=== PATIENT | female | born 1960 | race Caucasian/White ===

== ENCOUNTER → 2017-07-07 | Outpatient (CLI) | payer BC ==
[~2017-07-07] MED LIST: ALPR-412 PO; ATOR-22 PO; B-COTAB18 PO; BCTROWC; CALC-338 PO; CETI10TA84 PO; DILT300C21 PO; FLUT50SP14 NAE; FRRG PO; MULT-513 PO; NCYSR50 PO; OMEG10007 PO; PANT40TA PO; RANI150T3 PO; TRAM-10 PO; TRIA37.5 PO; WARF1TAB PO; premarin cream
--- NOTE | 2017-07-07 09:46 | DIAGNOSTIC IMAGING REPORT ---
SOFT TISS HEAD/NECK-THYROID CLINICAL HISTORY: 56 years-old Female presenting with E04.2 Nontoxic multinodular goiter. TECHNIQUE: Real-time grayscale and color and spectral Doppler ultrasound imaging of the thyroid and base of the neck was performed. COMPARISON: 06/17/2016. FINDINGS: Right lobe: Normal echogenicity and heterogeneous echotexture secondary to the presence of multiple nodules. The right lobe of the thyroid measures 5.8 x 1.6 x 2.4 cm. 2 dominant nodules described below: 1) 2.8 x 1.3 x 1.4 cm complex cystic and solid appearing spongiform nodule with punctate hyperechogenic foci with ringdown artifact, likely indicating inspissated colloid. Internal vascularity noted on color Doppler. This nodule is well-defined and wider than tall (Very low suspicion) 2) 1.6 x 1.0 x 1.1 cm complex cystic and solid appearing nodule with internal vascularity. This nodule is well-defined and wider than tall. (Very low suspicion) Left lobe: Normal echogenicity and heterogeneous echotexture secondary to the presence of multiple nodules. The left lobe of the thyroid measures 5.4 x 1.5 x 1.8 cm. 2 dominant nodules described below: 1) 1.0 x 0.6 x 0.7 cm cyst. (Benign) 2) 0.8 x 0.5 x 0.7 cm heterogeneously hypoechoic well-defined nodule that is wider than tall. Small focus of hyperechogenicity may indicate calcification. (Intermediate suspicion) Isthmus: The isthmus measures 2 mm in thickness. No nodules. IMPRESSION: Multinodular thyroid. No nodules meet criteria for fine needle aspiration recommendation at this time. Follow-up to be considered as clinically warranted. Electronically signed by: Theo Martinez M.D. 07/07/2017 9:45 AM Dictated Date/Time: 07/07/2017 9:39 AM
== END | disposition home or self-care (01) ==
LOC: C.ULTRBC 09:14
DX: E04.2 Nontoxic multinodular goiter (principal)

== ENCOUNTER → 2017-07-22 | Outpatient (CLI) | payer BC ==
--- NOTE | 2017-07-22 16:08 | MAMMOGRAPHY REPORT ---
BILATERAL DIGITAL SCREENING MAMMOGRAM TOMOSYNTHESIS WITH CAD: 07/22/2017 CLINICAL HISTORY: Routine screening. Patient has no complaints. TECHNIQUE: Breast tomosynthesis in addition to standard 2D mammography was performed. Current study was also evaluated with a Computer Aided Detection (CAD) system. COMPARISON: Comparison is made to exams dated: 07/17/2016 mammogram, 07/14/2015 mammogram, 07/08/2014 m ammogram, 07/05/2013 mammogram, 06/24/2012 mammogram, and 06/19/2011 mammogram - [facility]. BREAST COMPOSITION: There are scattered areas of fibroglandular density in both breasts. FINDINGS: There are scattered benign rim calcifications in the breasts. No suspicious mass, architec tural distortion or cluster of suspicious microcalcifications is seen. IMPRESSION: ACR BI-RADS CATEGORY 1: NEGATIVE There is no mammographic evidence of malignancy. A 1 year screening mammogram is recommended. The pa tient will receive written notification of the results. Approximately 10% of breast cancers are not detected with mammography. A negative mammographic report should not delay biopsy if a clinically suggestive mass is present. Marie Emerson M.D. ay/:07/22/2017 16:00:53 Procurement Technician: Chloe BOWMAN(Cyndi)(Felecia)(BD), [facility] letter sent: Normal 1/2 BI-RADS Code: ACR BI-RADS Category 1: Negative
== END | disposition home or self-care (01) ==
LOC: C.MAMM 07:14
PROVIDERS: ATTEND Obstetrics & Gynecology
DX: Z12.31 Encounter for screening mammogram for malignant neoplasm of breast (principal)

== ENCOUNTER → 2018-07-10 | Outpatient (CLI) | payer OTHER ==
--- NOTE | 2018-07-13 09:34 | DIAGNOSTIC IMAGING REPORT ---
L-SPINE MIN 4 VIEWS ROUTINE HISTORY: 57 years-old Female M54.5 Chronic low back pain COMPARISON: Lumbar spine radiographs 02/02/2013 TECHNIQUE: 5 views of the lumbar spine FINDINGS: There is mild convex right curvature of the lumbar spine with apex at L4 measuring approximately 12 degrees which appears progressed from comparison. No acute fracture or subluxation is identified. There is moderate intervertebral disc space narrowing with endplate sclerosis and vacuum disc phenomenon at L5-S1, also worsened from prior study. There is mild multilevel spondylitic spurring with intervertebral disc space narrowing. Moderate facet arthrosis at L4-L5 and L5-S1, also progressed from comparison study. Partially imaged 2.8 cm sclerotic focus about the left iliac bone redemonstrated, likely benign appearing unchanged. Moderate formed stool about the colon. Bilateral nephrolithiasis with calculi measuring up to 4 mm about the superior pole left kidney. IMPRESSION: 1. No acute fracture or subluxation. 2. Progressively worsened discogenic degenerative changes as detailed above, most pronounced at L5-S1. 3. Mild dextroscoliosis. 4. Bilateral nephrolithiasis. The above report was generated using voice recognition software. It may contain grammatical, syntax or spelling errors. Electronically signed by: Sushant Justice M.D. 07/13/2018 9:33 AM Dictated Date/Time: 07/13/2018 9:27 AM
== END | disposition home or self-care (01) ==
LOC: C.RAD1850 16:00
PROVIDERS: ATTEND Physician Assistant
DX: M54.5 Low back pain (principal); N20.0 Calculus of kidney

== ENCOUNTER → 2018-07-17 | Outpatient (CLI) | payer OTHER | END | disposition home or self-care (01) | LOC: C.RDSM 13:15 | PROVIDERS: ATTEND Orthopaedic Surgery | DX: M25.561 Pain in right knee (principal); R52 Pain, unspecified; Z91.02 Food additives allergy status ==

== ENCOUNTER 2021-01-19 05:20 | Observation (INO) ==
--- NOTE | 2021-01-12 11:58 | Anesthesiology Consultation ---
Date of Service January 12, 2021 Assessment & Plan (1) Encounter for pre-operative examination: Chart Review Chart Review: Acceptable Risk for Surgery (pending anesthesia evaluation DOS and preop Covid testing results) and Patient seen in Pre Admission Testing (seen in PAT 12/20/20- had V# account changed- information moved to new account ) PT VERY CLAUSTROPHOBIC - Will leave to anesthesiologist discretion if repeat CXR needed DOS (CT scan showing possible inflammatory/infectious change- pt denied pulmonary issues) Per PAT appt on 12/20/20, pt denies any recent travel. No known Covid positive contacts or Covid related symptoms. Pt scheduled for preop Covid testing 01/15/21= will await results. Note sent to PCP re: abnormal CXR and nodule opacity. (see response below) -Spoke with Dr. Knox via telephone 12/21/20= patient will be set up for chest CT prior to surgery (hopefully next week). Will await results. Regarding Karla Danlos syndrome- ECHO done in 2018 showed no acute issues- pt does not need repeat from PCP standpoint prior to surgery. Chest CT 12/29/2020 = Small focal areas of faint groundglass density within the base of the right middle lobe and right lower lobe. These favor areas of resolving inflammatory/infectious change. One of these could have corresponded to the chest x-ray abnormality. No suspicious nodules within the lung bases. A few tiny nodular densities of the right lung apex with the largest measuring 3 mm. These are likely benign. However, these bear watching future examinations. Mild aneurysmal dilatation of the ascending thoracic aorta measures up to 4 cm in diameter. A 1.2 cm round soft tissue nodule within the anterior mediastinum. This could represent a small thymic epithelial neoplasm or prominent lymph node. [address] follow up recommended to ensure stability. Bilateral nephrolithiasis. Seen by PCP 01/04/2021 = patient seen for follow-up visit for continued monitoring and management of her multiple medical issues. PCP also aware of upcoming hip replacement. CT scan results (see above) were reviewed with patient per PCP. Patient is not having any pulmonary symptoms. Patient's blood pressure slowly improving with medication adjustments. Remains in the upper normal range. PCP feels that her chronic and apparent severe pain from her hip is contributing to the rise of blood pressure. " Nonetheless, I think it is at a level that is safe for her to go through surgery." "Her pre-admission testing did show a pulmonary nodule that is confirmed on CT scan. However, Radiology feels that the change is probably inflammatory or infectious. They recommend a repeat in 6 months. Will probably do it in 3. Nonetheless, this should not stop her from having her surgery later this month. " History Surgery Operation Date: 01/19/21 07:00 Proposed Procedures p Total Hip Arthroplasty Uncemt Anterior - Michael Alexis, Height/Weight Height: 5 ft 6 in Weight: 87.9 kg Allergies Allergy/AdvReac Type Severity Reaction Status Date / Time red dye Allergy Severe JEFFREY RED Verified 01/04/21 15:58 DYE - DIFFICULTY BREATHING, SWELLING pollen extracts Allergy Intermediate ITCHY Verified 01/04/21 15:58 EYES, SNEEZING, CONGESTION chlorhexidine Allergy Rash Verified 01/04/21 15:58 adhesive tape AdvReac Mild Redness of Verified 01/04/21 15:58 Skin Medications Home Medications Medication Instructions Recorded Confirmed Last Taken fluticasone propionate [Flonase 1 sprays INTNAS DAILY PRN 01/10/20 01/04/21 Unknown Allergy Relief] valacyclovir 500 mg PO BID PRN 01/10/20 01/04/21 Unknown vitamin B complex 1 tab PO QAM 01/10/20 01/04/21 01/18/20 07:00 epinephrine [EpiPen 2-Delroy] 0.3 mg IM ONCE PRN #1 ea 01/13/20 01/04/21 Unknown acetaminophen-caffeine 500 mg-65 2 tab PO QAM tab 06/06/20 01/04/21 Unknown mg tablet atorvastatin 20 mg tablet 20 mg PO QPM #90 tab 06/06/20 01/04/21 Unknown cholecalciferol (vitamin D3) 100 100 mcg PO QAM 06/06/20 01/04/21 Unknown mcg (4,000 unit) capsule diltiazem HCl 300 mg 300 mg PO QPM #90 cap 06/06/20 01/04/21 Unknown capsule,extended release 24 hr diphenhydramine 25 2 tab PO HS tab 06/06/20 01/04/21 Unknown mg-acetaminophen 500 mg tablet pantoprazole 40 mg tablet,delayed 40 mg PO BID #180 tab 09/12/20 01/04/21 Unknown release meloxicam 15 mg PO QAM 12/11/20 01/04/21 Unknown alprazolam 0.25 mg tablet 0.25 mg PO TID #270 tab 12/14/20 01/04/21 Unknown loratadine 10 mg capsule 10 mg PO DAILY 12/14/20 01/04/21 Unknown tramadol 50 mg tablet 100 mg PO Q8H #540 tab 12/14/20 01/04/21 Unknown losartan 50 mg-hydrochlorothiazide 1 tab PO DAILY #90 tab 01/08/21 Unknown 12.5 mg tablet oxycodone-acetaminophen 5 mg-325 1 tab PO .COMPLEX PRN #60 tab 01/08/21 Unknown mg tablet Past Medical History Medical History Anxiety Asthma YEARS AGO PER PT> NO INH- WELL CONTROLLED AND STABLE Constipation CHRONIC- PT WILL BE PRE-MEDICATING PRIOR TO SURGERY Depression Karla-Danlos, 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 - DOES HAVE ASSOCIATED MVP, MIXED CONNECTIVE TISSUE DISEASE, LOOSE JOINTS Eosinophilic esophagitis Gastroesophageal reflux disease WELL CONTROLLED AND STABLE WITH MED Hearing deficit BL RIZZO Hyperlipidemia Hypertension Lupus SLE Mitral valve prolapse does not follow w/ cardio Mixed connective tissue disease NO LONGER FOLLOWS WITH RHEUM Multinodular thyroid GETS CHECKED YEARLY > HASN'T CHANGED Osteoarthritis Scoliosis Tinnitus of right ear Exercise / Class Metabolic Activity III < 4 Walking/Shop/Light housework (one flight of stairs - no chest pain, mild SOB due deconditioning ) Past Family History Family History Father Stomach cancer Hearing loss Bladder cancer Dyslipidemia Non-Hodgkin lymphoma Sinusitis Hypertension Diabetes Mother Skin cancer Hearing loss deaf in right ear Osteoporosis Dyslipidemia Kidney disease Breast cancer Hypertension Post-operative nausea and vomiting Family/Other Bleeding Past Surgical History Surgical History H/O colonoscopy H/O laparoscopy H/O LEEP H/O oral surgery WISDOM TEETH History of adenoidectomy History of cryosurgery cervix History of dilation and curettage History of elbow surgery repair of Rt elbow fracture-1984 History of esophagogastroduodenoscopy (EGD) History of hysterectomy with unilateral oophorectomy History of Mohs micrographic surgery for skin cancer x 2 History of myringotomy History of total left knee replacement S/P tonsillectomy Past Anesthesia History No Hx of Anesthesia Complications and No Family Hx of Anesthesia Complications (WITH EXCEPTION TO MOTHER - PONV ) History of PONV No Hx of PONV (BUT FEELS LIKE SHE WAS GIVEN MEDS IN THE PAST TO HELP WITH PONV ) and Hx of Motion Sickness (CAR SICKNESS) Social History Smoking Status: Never smoker Hx Alcohol Use: Yes Alcohol type: wine and hard liquor alcohol intake frequency: a few times a month Hx Substance Use: No substance use type: does not use Review of Systems Patient denies chest pain, shortness of breath at rest, cough, wheezing, palpitations. No hx of seizures, stroke, UT, apnea/snoring. No hx of blood clots or blood transfusions Physical Exam Vital Signs VITALS BP 147/93 P 66 TEMP 97.8 SP02 99% RESP 16 Constitutional no acute distress ENMT Mouth: no TMJ clicking Thyromental Distance: > or= 3.5 Finger Breadths (3.5) Mallampati Class: I Crowns to molars Neck neck extension not limited Respiratory normal respiratory effort; no respiratory distress Auscultation: lungs clear to auscultation bilaterally; no wheezes Cardiovascular Rate/Rhythm: regular rate and regular rhythm Heart Sounds: no murmur Vessels: no carotid bruit Musculoskeletal Spine: no pain with cervical ROM Extremities: extremities normal to inspection Psychiatric Orientation: alert Testing Laboratory Results Laboratory Tests 12/20/20 12/20/20 12/20/20 10:21 10:21 10:21 WBC 6.93 Hgb 13.9 Hct 41.9 Plt Count 294 PT 10.3 INR 1.0 APTT 25.4 Sodium 140 Potassium 3.6 Chloride 107 Carbon Dioxide 29 BUN 15 Creatinine 0.89 Glucose 97 12/20/2020 = T&S: A+, antibody negative Electrocardiogram Date: 12/20/20 Findings: + SB @ (58bpm) Otherwise normal EKG. Chest X-Ray Date: 12/20/20 1.9 cm nodular opacity which projects over the heart on lateral projection. This could reflect artifact or minimal airspace disease. However, a pulmonary nodule could appear similar. A chest CT is recommended. (Subsequent CT scan of chest done 2/5/21) Echocardiogram Date: 07/23/18 EF: 60-65% LV Function: normal RWMA: + none LA mildly dilated. Late systolic prolapse of MV leaflets. Mild to moderate MR. Mild TR. Compared to study on 12/28/13- no significant change.
--- NOTE | 2021-01-18 15:56 | History & Physical Report ---
Date of Service January 18, 2021 Assessment & Plan (1) Osteoarthritis of left hip: We will proceed with a left anterior total knee arthroplasty. Postoperatively she will be started on aspirin for DVT prophylaxis. She will be kept overnight in the hospital for postoperative medical management. She plans to use energy physical therapy upon discharge. History of Present Illness Chief Complaint: Osteoarthritis of the left hip. Primary Care Provider: Antony Knox MD Rebecca is a pleasant 60-year-old female who has been dealing with chronic increasing left hip and groin pain. X-rays and clinical examination have been diagnostic for advanced osteoarthritis of the left hip. After failing conservative treatment, she has elected to proceed with a left total hip arthroplasty.. Allergies Allergy/AdvReac Type Severity Reaction Status Date / Time red dye Allergy Severe JEFFREY RED Verified 01/14/21 19:57 DYE - DIFFICULTY BREATHING, SWELLING pollen extracts Allergy Intermediate ITCHY Verified 01/14/21 19:57 EYES, SNEEZING, CONGESTION chlorhexidine Allergy Rash Verified 01/14/21 19:57 adhesive tape AdvReac Mild Redness of Verified 01/14/21 19:57 Skin Home Medications Medication Instructions Recorded Confirmed Type fluticasone propionate [Flonase 1 sprays INTNAS DAILY PRN 01/10/20 01/14/21 History Allergy Relief] valacyclovir 500 mg PO BID PRN 01/10/20 01/14/21 History vitamin B complex 1 tab PO QAM 01/10/20 01/14/21 History epinephrine [EpiPen 2-Delroy] 0.3 mg IM ONCE PRN #1 ea 01/13/20 01/14/21 Rx acetaminophen-caffeine 500 mg-65 2 tab PO QAM tab 06/06/20 01/14/21 History mg tablet atorvastatin 20 mg tablet 20 mg PO QPM #90 tab 06/06/20 01/14/21 Rx cholecalciferol (vitamin D3) 100 100 mcg PO QAM 06/06/20 01/14/21 History mcg (4,000 unit) capsule diltiazem HCl 300 mg 300 mg PO QPM #90 cap 06/06/20 01/14/21 Rx capsule,extended release 24 hr diphenhydramine 25 2 tab PO HS tab 06/06/20 01/14/21 History mg-acetaminophen 500 mg tablet pantoprazole 40 mg tablet,delayed 40 mg PO BID #180 tab 09/12/20 01/14/21 Rx release meloxicam 15 mg PO QAM 12/11/20 01/14/21 History alprazolam 0.25 mg tablet 0.25 mg PO TID #270 tab 12/14/20 01/14/21 Rx loratadine 10 mg capsule 10 mg PO DAILY 12/14/20 01/14/21 History tramadol 50 mg tablet 100 mg PO Q8H #540 tab 12/14/20 01/14/21 Rx losartan 50 mg-hydrochlorothiazide 1 tab PO DAILY #90 tab 01/08/21 01/14/21 Rx 12.5 mg tablet oxycodone-acetaminophen 5 mg-325 1 tab PO .COMPLEX PRN #60 tab 01/08/21 01/14/21 Rx mg tablet Past Med/Surg History Medical History Anxiety Asthma YEARS AGO PER PT> NO INH- WELL CONTROLLED AND STABLE Constipation CHRONIC- PT WILL BE PRE-MEDICATING PRIOR TO SURGERY Depression Karla-Danlos, 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 - DOES HAVE ASSOCIATED MVP, MIXED CONNECTIVE TISSUE DISEASE, LOOSE JOINTS Eosinophilic esophagitis Gastroesophageal reflux disease WELL CONTROLLED AND STABLE WITH MED Hearing deficit BL RIZZO Hyperlipidemia Hypertension Lupus SLE Mitral valve prolapse does not follow w/ cardio Mixed connective tissue disease NO LONGER FOLLOWS WITH RHEUM Multinodular thyroid GETS CHECKED YEARLY > HASN'T CHANGED Osteoarthritis Scoliosis Tinnitus of right ear Surgical History H/O colonoscopy H/O laparoscopy H/O LEEP H/O oral surgery WISDOM TEETH History of adenoidectomy History of cryosurgery cervix History of dilation and curettage History of elbow surgery repair of Rt elbow fracture-1984 History of esophagogastroduodenoscopy (EGD) History of hysterectomy with unilateral oophorectomy History of Mohs micrographic surgery for skin cancer x 2 History of myringotomy History of total left knee replacement S/P tonsillectomy Family History Father Stomach cancer Hearing loss Bladder cancer Dyslipidemia Non-Hodgkin lymphoma Sinusitis Hypertension Diabetes Mother Skin cancer Hearing loss deaf in right ear Osteoporosis Dyslipidemia Kidney disease Breast cancer Hypertension Post-operative nausea and vomiting Family/Other Bleeding Social History Smoking Status: Never smoker Second Hand Exposure: No; Do You Dip or Chew Tobacco: No; Tobacco Cessation Education Requested by Patient: No Hx Alcohol Use: Yes Alcohol type: wine and hard liquor Hx Substance Use: No Preferred Language: Bengali Communication Ability: Effective Firearms Sales Associate Required: No Beliefs That Will Affect Care: None marital status: Current Living Situation: Spouse current occupational status: retired Other Information That Helps Us Care for You: No Feels Safe at Home: Yes Safety Concerns: Feels Safe At This Time Physical Activity Frequency: 3-4 Times per Week Assistive Devices: Cane, Contacts, Glasses and Hearing Aid - Bilateral Review of Systems All systems reviewed & are unremarkable except as noted in HPI & below. Physical Exam On physical examination of the left hip, she ambulates independently. Her leg lengths are equal. She has severe pain with forced internal and external rotation of her hip.. Constitutional WD/WN, vitals as above Eyes PERRL, conjunctivae normal, anicteric sclerae ENMT external ear and nose normal, oropharynx normal Neck trachea midline, no thyromegaly Respiratory normal respiratory effort Cardiovascular RRR, no murmur, no edema Gastrointestinal (Abdomen) normal bowel sounds, soft, nontender, no hepatosplenomegaly Psychiatric A+Ox3, euthymic affect Results & Data Results & Data Laboratory Results . Diagnostic Findings X-rays of the left hip do show advanced osteoarthritis with joint space narrowing, osteophyte formation, and [id number] articulation.. PG Care Time/CCT Total # of Minutes Spent Total Time Spent with Patient: Total time spent is greater than 50% in coordination of care (as documented) at patient's floor/unit and/or counseling patient: Coding Level of Care Code None Diagnoses Osteoarthritis of left hip M16.12
[2021-01-19] MEDS ORDERED: FAMOTIDINE 20 MG TAB PO SCH (06:00)
[2021-01-19] MEDS ORDERED: LR 500ML BOLUS, THEN 15ML/HR IV SCH (06:00)
[2021-01-19] MEDS ORDERED: dexAMETHasone 4 MG TAB PO SCH (06:00)
[2021-01-19] MEDS ORDERED: LR 60ML/HR IV SCH (06:00)
[2021-01-19] MEDS ORDERED: ACETAMINOPHEN 500 MG TAB PO SCH (06:00)
[2021-01-19] MEDS ORDERED: GABAPENTIN 300 MG CAP PO SCH (06:00)
[2021-01-19] MEDS ORDERED: ceFAZolin 2000MG 2,000 MG/15 ML SYR IV SCH (06:00)
[2021-01-19] MEDS ORDERED: ROPIVACAINE 0.5% HCL/PF 150 MG, BUPIVACAINE 0.75% MPF 20 ML, EPINEPHrine 30MG/30ML (OR ... INSTIL SCH (06:00)
[2021-01-19] MEDS ORDERED: TRANEXAMIC ACID 1,000 MG **IV Pre-op IV SCH (06:00)
[2021-01-19] MEDS ORDERED: TRANEXAMIC ACID 1,000 MG **IV Intra-op IV SCH (06:00)
--- NOTE | 2021-01-19 06:15 | History & Physical Bridge Note ---
Date of Service January 19, 2021 History & Physical Bridge Note I have examined the patient, reviewed the History & Physical and in the interval since the performance of the History & Physical I have noted the following changes of clinical significance: no changes noted
[2021-01-19] MEDS ORDERED: BUPIVACAINE 0.5 % 5 MG/1 ML PF 10ML VIAL ONE (06:22)
[2021-01-19] MEDS ORDERED: PROPOFOL IV EMULSION 10 MG/ML 20 ML VIAL IV ONE ×10 (06:35→06:36)
[2021-01-19] MEDS ORDERED: MIDAZOLAM HCL 1 MG/ML 2ML VIAL ONE ×2 (06:38)
[2021-01-19] MEDS ORDERED: fentaNYL citrate 100 MCG/2 ML VIAL ONE (06:39)
[2021-01-19] MEDS ORDERED: ORTHO JOINT ANESTHETIC ONE (06:45)
[2021-01-19] MEDS ORDERED: PHENYLEPHRINE 100MCG/ML 5ML SYR ONE (07:29)
[2021-01-19] MEDS ORDERED: ePHEDrine sulfate 50 MG/ML SYR ONE (07:29)
[2021-01-19] MEDS ORDERED: ONDANSETRON INJ 2 MG/ML 2 ML VIAL ONE (08:47)
--- NOTE | 2021-01-19 08:49 | Operative Report ---
PG Post Operative Report Pre & Post Diagnosis Operation Date: 01/19/21 07:00 Pre-Op Diagnosis: Left Hip Osteoarthritis Post-Op Diagnosis: Left Hip Osteoarthritis I identified the patient and participated in the time-out.: Yes Procedure Operation Date: 01/19/21 07:00 Actual Procedures p Left Anterior Total Hip Arthroplasty(Left) - Michael Alexis DO Surgeon Michael Alexis, [employer] System Installer Helper Michael Barry PAC Estimated Blood Loss 300 Findings Consistent with Post-Op Diagnosis Specimens Left femoral head Complications none Disposition Disposition: Recovery Room Indications Rebecca is a pleasant 60-year-old female who is been dealing with chronic increasing left hip and groin pain. X-rays and clinical examination have been diagnostic for advanced osteoarthritis of the left hip. Her symptoms have gotten much worse recently. She has been downgraded to a walker and a wheelchair. 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 She does have extreme ligamentous laxity. She elected to proceed with a left total hip arthroplasty. Description of Procedure Implants used I used a Biomet Taperloc total hip arthroplasty system with a size 10 high offset Taperloc stem, a 50 mm Osseoti G7 cup with a 25mm screw, a 28 mm ceramic head and a 40 mm dual mobility shell with a 0 neck. Rebecca arrived at the hospital for the above procedure. She was seen in the preoperative holding area and the operative extremity was identified and signed. She was given a spinal anesthetic, a preoperative antibiotic, and TXA. She was then taken back to the operating room and laid on the table in the supine position. She was given basic sedation. The operative leg was secured to a Puristst leg positioner. The hip was then prepped and draped in sterile fashion. A timeout was done and the patient and the operative extremity was properly identified. An anterior approach was used. Dissection was taken down through the fascia and the tensor muscle belly was retracted laterally and the rectus was retracted medially. The circumflex vessels were identified and ligated. The capsule was then incised and tagged for later repair. The femoral neck was then cut and the femoral head was removed. The acetabulum was exposed. Time was spent doing a complete circumferential labral release. Sequential reaming of the acetabulum up to a size 49 reamer was done. Final reamings were done under fluoroscopy to ensure appropriate version. A Biomet 50 mm Osseoti G7 cup was then impacted into place. A single 25 mm screw was placed. The metal shell liner was then snapped into place. Surrounding soft tissues were then injected with 100 cc of an orthopedic pain control cocktail. The proximal femur was then exposed. Sequential broaching up to a size 10 broach was done. Off that broach a size 40 mm dual mobility head with a 0 neck was trialed. The hip was reduced and fluoroscopic images showed anatomic alignment of the implants in acceptable length. The broach was removed. The final size 10 high offset Taperloc stem was then impacted into place. A ceramic 28 mm head with a 40 mm dual mobility shell and 0 neck was then impacted onto the stem and the hip was reduced. Final fluoroscopic images showed anatomic alignment of the hip. The capsule was then closed with #1 Vicryl suture. A dilute betadyne lavage was then done for 3 minutes. The joint was then irrigated with normal saline solution. The fascia was closed with #1 PDS suture. Skin was closed with 2-0 Vicryl, get, and a Silverlon dressing. She was then transferred to a hospital bed and taken to the post anesthesia care unit in stable condition. She tolerated the procedure well. Michael Barry PA-C, was present for the entire procedure. He was critical for patient positioning, prepping, draping, retraction exposure, wound closure and application of sterile dressing. I attest to the content of the Intraoperative Record and any orders documented therein. Any exceptions are noted below.
--- NOTE | 2021-01-19 08:51 | Fluoroscopy Report ---
FL hip LT 1V CLINICAL HISTORY: LEFT ANTERIOR SCOT COMPARISON STUDY: X-ray study dated 01/04/2021 FLUOROSCOPY TIME: 30 seconds. NUMBER OF FLUOROSCOPIC IMAGES: 2 FINDINGS: 2 intraprocedural fluoroscopic spot images demonstrating a total left hip arthroplasty. IMPRESSION: Intraoperative fluoroscopic spot images demonstrating a total left hip arthroplasty ACT 112: Negative or not required by law. Electronically signed by: Watson Zapata M.D. 01/19/2021 8:50 AM
[2021-01-19] MEDS ORDERED: PHENYLEPHRINE HCL 10 MG/ML VIAL ONE (09:02)
--- NOTE | 2021-01-19 09:27 | XRay Report ---
XR hip 1V LT w pelvis HISTORY: 60 years-old Female IN PACU - A/P PELVIS and LATERAL HIP left hip total joint arthroplasty COMPARISON: Pelvis and left hip radiograph 01/04/2021 TECHNIQUE: AP view of the pelvis with crosstable lateral view of the left hip FINDINGS: Left hip total joint arthroplasty demonstrates satisfactory alignment. No acute fracture. 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 Mild osteoarthritis of the right hip. Lat eral left hip skin get are noted with adjacent deep tissue air with soft tissue swelling. No unex pected opaque foreign body. IMPRESSION: Left hip total joint arthroplasty with expected postoperative changes. ACT 112: Negative or not required by law. The above report was generated using voice recognition software. It may contain grammatical, syntax o r spelling errors. Electronically signed by: Sushant Justice M.D. 01/19/2021 9:25 AM
[2021-01-19] MEDS ORDERED: ATROPINE SULFATE 0.1 MG/ML 10ML SYR IV PRN (09:30)
[2021-01-19] MEDS ORDERED: ePHEDrine sulfate 50 MG/ML AMP IV PRN (09:30)
--- NOTE | 2021-01-19 09:31 | Anesthesiology Progress Note ---
Date of Service January 19, 2021 Anesthesia Post Procedure Vital Signs Vital Signs: Temp Pulse Pulse Resp BP Pulse Ox 01/19/21 09:25 36.5 C 75 14 124/70 97 01/19/21 09:15 78 14 124/65 100 01/19/21 09:06 36.5 C 69 14 136/72 100 01/19/21 05:55 37.1 C 81 18 156/86 H 97 Pain Intensity Left Hip: Pain Intensity: 10 Transfer of Care Handoff Completed per policy Notes Mental Status: alert / awake / arousable Patient Amnestic to Procedure: Yes Nausea / Vomiting: adequately controlled Pain: adequately controlled Airway Patency, RR, SpO2: stable & adequate BP & HR: stable & adequate Hydration State: stable & adequate Neuraxial Anesthesia: was administered and sensory block is resolving Anesthetic Complications: no major complications apparent
[2021-01-19] MEDS ORDERED: HYDROmorphone INJ 0.5 MG/0.5 ML SYR IV PRN (09:42)
[2021-01-19] MEDS ORDERED: FLUTICASONE PROPIONATE NA SPR 16 GM BTL PRN (09:42)
[2021-01-19] MEDS ORDERED: bisacodyL 10 MG SUPP PR PRN (09:42)
[2021-01-19] MEDS ORDERED: NALOXONE HCL 0.4 MG/1 ML VIAL/CARP IV PRN (09:42)
[2021-01-19] MEDS ORDERED: valACYclovir HCL 500 MG TABLET PO PRN (09:42)
[2021-01-19] MEDS ORDERED: SODIUM CHLORIDE 0.9% 1000ML 1,000 ML IV SCH (09:42)
[2021-01-19] MEDS ORDERED: ONDANSETRON INJ 2 MG/ML 2 ML VIAL IV PRN (09:42)
[2021-01-19] MEDS ORDERED: MAGNESIUM HYDROXIDE SUSP 30 ML UDC PO PRN (09:42)
[2021-01-19] MEDS ORDERED: EPINEPHrine ADULT AUTO-INJECT 0.3 MG SYR IM PRN (09:42)
[2021-01-19] MEDS ORDERED: METOCLOPRAMIDE HCL INJ 5 MG/ML 2 ML VIAL IV PRN (09:42)
[2021-01-19] MEDS: KETOROLAC 30 MG/ML VIAL IV SCH ×3 (10:42→21:47)
[2021-01-19] MEDS: ACETAMINOPHEN 500 MG TAB PO SCH ×2 (13:11→21:43)
[2021-01-19] MEDS: ALPRAZolam 0.25 MG TABLET PO SCH ×2 (13:11→21:47)
[2021-01-19] MEDS: ceFAZolin 2000MG 2,000 MG/15 ML SYR IV SCH ×2 (15:12→23:06)
[2021-01-19] MEDS: oxyCODONE HCL IR 5 MG TAB (IMMEDIATE RELEASE) PO PRN (17:41)
[2021-01-19] MEDS ORDERED: dilTIAZem HCL 300 MG CAPCR PO SCH (21:00)
[2021-01-19] MEDS ORDERED: ATORVASTATIN 20 MG TAB PO SCH (21:00)
[2021-01-19] MEDS ORDERED: SENNA 8.6 MG TAB PO SCH (21:00)
[2021-01-19] MEDS: ASPIRIN 81 MG ECTAB PO SCH (21:41)
[2021-01-19] MEDS: PANTOprazole 40 MG TAB PO SCH (21:42)
[2021-01-19] MEDS: DOCUSATE SODIUM 100 MG CAP PO SCH (21:47)
[2021-01-20] MEDS: KETOROLAC 30 MG/ML VIAL IV SCH ×2 (02:56→08:50)
[2021-01-20] MEDS: ACETAMINOPHEN 500 MG TAB PO SCH (06:06)
[2021-01-20 06:52] LABS: Hematocrit (blood only) 33.1 % (37-47); Hemoglobin 11.3 g/dL (12.0-16.0); Immature Granulocytes # (auto) 0.03 K/uL (0.00-0.02); Immature Granulocytes % (auto) 0.2 %; Lymphocytes # (auto) 1.27 K/uL (1.2-3.4); Lymphocytes % (auto) 9.8 %; Mean Corpuscular Hgb Conc 34.1 g/dL (32-36); Mean Corpuscular Volume 87.8 fL (80-100); Neutrophils # (auto) 10.37 K/uL (1.4-6.5); Platelet Count 249 K/uL (130-400); RDW Coefficient of Variation 14.6 % (11.5-14.5); RDW Standard Deviation 46.3 fL (36.4-46.3); Red Blood Count 3.77 M/uL (4.2-5.4); White Blood Count 12.97 K/uL (4.8-10.8)
[2021-01-20 07:28] LABS: BUN Creatinine Ratio 20.1 (10-20); Calcium 9.7 mg/dl (8.5-10.1); Creatinine Clr Calc Pharmacy 79.1 ml/min; Est GFR (African American) 86.3; Est GFR (Non-African American) 74.5; Potassium 3.8 mmol/L (3.5-5.1)
--- NOTE | 2021-01-20 07:46 | Orthopedic Progress Note ---
Date of Service January 20, 2021 Assessment & Plan (1) Status post left hip replacement: Overall she is doing fairly well. She is not having much pain in the left hip. She will be seen by physical therapy this morning for ambulation and range of motion exercises. She is on aspirin for DVT prophylaxis. She can be discharged home later today. She will follow-up with orthopedics in 2 weeks. Subjective Rebecca was seen and examined at bedside this morning. Overall she is doing fairly well. She is starting to get some pain in her left hip. She has been up and ambulating to the bathroom a lot overnight. She had trouble getting sleep last night. She has no other complaints.. Review of Systems All systems reviewed & are unremarkable except as noted in HPI & below. Physical Exam On physical examination of the left hip, the dressing is clean and dry. Her leg lengths are equal. She has active dorsiflexion and plantarflexion of her left ankle.. Results & Data Results & Data Laboratory Results H & H 01/20/21 Range/Units 06:30 Hgb 11.3 L (12.0-16.0) g/dL Hct 33.1 L (37-47) % . Diagnostic Findings Postoperative x-rays of the left hip show the prosthesis to be in anatomic alignment without any evidence of fracture, dislocation, or loosening.. PG Care Time/CCT Total # of Minutes Spent Total Time Spent with Patient: Total time spent is greater than 50% in coordination of care (as documented) at patient's floor/unit and/or counseling patient: Coding Level of Care Code 76290 Post Operative Follow-Up Diagnoses Status post left hip replacement Z96.642
--- NOTE | 2021-01-20 07:47 | Discharge Summary ---
Date of Service January 20, 2021 Admission HPI (Per Admitting) Rebecca is a pleasant 60-year-old female who has been dealing with chronic increasing left hip and groin pain. X-rays and clinical examination have been diagnostic for advanced osteoarthritis of the left hip. After failing conservative treatment, she has elected to proceed with a left total hip arthroplasty.. Principal Diagnosis Same as "Discharge Diagnosis" noted below under Discharge Instructions. Discharge Exam On physical examination of the left hip, the dressing is clean and dry. Her leg lengths are equal. She has active dorsiflexion and plantarflexion of her left ankle.. Discharge Data Consultations 01/20/21 08:00 Consult Case Management - Discharge Planning Routine Procedures Performed Operation Date: 01/19/21 07:00 Actual Procedures p Left Anterior Total Hip Arthroplasty(Left) - Michael Alexis DO Ordered Studies 01/19/21 07:00 FL fluoroscopy <1hr Routine FL hip LT 1V Routine Hospital Course (1) Status post left hip replacement: On January 19, 2021 she will arrived at [facility] and underwent a left total hip arthroplasty without complication. She had a spinal anesthetic. Postoperatively she was started on aspirin for DVT prophylaxis and transferred to the general orthopedic floors. Her hospital course was uneventful. On postop day #1 her H&H was stable and her pain was well controlled. She was able to participate well with physical therapy doing ambulation and range of motion exercises. She was then discharged to home. She will follow-up with orthopedics in 2 weeks. PG Care Time/CCT Total # of Minutes Spent Total Time Spent with Patient: Total time spent is greater than 50% in coordination of care (as documented) at patient's floor/unit and/or counseling patient: Discharge Plan Discharge Items Patient Disposition: Home - Home Health Services Reason For Visit: DJD left hip Discharge Diagnosis: Left hip replacement Activity: As commented below Non-emergency contact: Surgeon Call non-emergency contact if: your wound has increased redness and your wound has increased drainage Follow-up/Referrals: Antony Knox MD [Primary Care Provider] - Diet: Regular Addtl Attending Provider Instructions: Activity and Therapy Recommendations: * If you are using [facility] then therapy will be provided at your home until they feel you have accomplished all of your goals. * If you are using [facility] then Physical Therapy will be provided until they feel you are ready to start Outpatient Physical Therapy. * If you are not using home therapy then Outpatient Physical Therapy should start about 3-5 days from your day of surgery. Therapy will last about 6-10 weeks * You were shown a series of exercises in the hospital. Do these exercises three times each day including the exercises you were shown in physical therapy. * Get up and walk several times each day.~ For the first four weeks, try not to stand or walk for more than one hour at a time. If you do stand or walk for more than one hour, you will not hurt anything, but your leg will likely swell.~~ * As you feel comfortable, you may change from the walker or crutches to a cane and~then to independent walking. Medications: * Narcotic You will likely be sent home from the hospital with a prescription for the narcotic pain medication that worked best throughout your stay. * Aspirin Most patients will be required to take Aspirin 81mg twice a day for 6 weeks after surgery. This is obtained [id number] and a prescription is not necessary. * Other medications may be prescribed for specific circumstances. If you have any questions, please call the office at . * Resume previous home medications unless otherwise instructed TEDs/Elastic Stockings: The white elastic stockings help limit swelling and prevent blood clots from forming in your legs. The more you wear them, the more they work. Wear them for six weeks. Dressing Care: Leave the Silverlon dressing in place for 7 days. After 7 days you may remove the dressing. If the incision is not draining then you may leave the get open to air. If there is a little bit of drainage or if the get are getting stuck on your clothing then cover the incision with a dry dressing. The get will be removed at your 2 week follow-up appointment. Showering: You may shower with the Silverlon dressing in place. Do not let the shower spray hit the dressing directly. Pat the Silverlon dressing dry. If the dressing becomes wet underneath, then simply remove the dressing. Keep the incision dry until you are 7 days out from the day of surgery. After 7 days you may remove the Silverlon dressing and shower with the get exposed. Let soapy water run over the get and pat them dry. Do not scrub or soak the incision. Things To Watch For: * Drainage from the incision site that occurs more than one week after your surgery. * Increased redness at the incision site. * Fever above 102 degrees Fahrenheit. * Unusual chest pain or shortness of breath. * Call [facility] at with any of the above problems Follow-Up Visit: Follow-up with Dr. Alexis's PA (Michael Barry) 2-3 weeks after your day of surgery. He will remove your get and answer any questions. If you have any additional questions or concerns, Dr Alexis is usually in the office at the same time and will be available An appointment was probably scheduled when you signed-up for surgery in the office. If you have any questions call Office Instructions: More detailed instructions as well as Frequently Asked Questions were provided in a folder by our office when you signed-up for surgery. Please review these instructions when you get home. If you have any further questions or concerns, please feel free to call the office at [phone] Pending Studies at Discharge: No Stand-Alone Forms: My [facility], Smoking Cessation Medications and DC Order Prescriptions: New oxycodone 5 mg Tablet 5 mg PO Q4H PRN (Reason: pain) Qty: 60 RF: 0 aspirin 81 mg Tablet,Delayed Release (Dr/Ec) 81 mg PO BID 42 Days Qty: 0 RF: 0 Continued losartan-hydrochlorothiazide 50-12.5 mg tablet 1 tab PO DAILY Qty: 90 RF: 3 oxycodone-acetaminophen [Percocet] 5-325 mg tablet 1 tab PO .COMPLEX PRN (Reason: pain) Qty: 60 RF: 0 pantoprazole 40 mg tablet,delayed release (DR/EC) 40 mg PO BID Qty: 180 RF: 3 cholecalciferol (vitamin D3) 100 mcg (4,000 unit) capsule 100 mcg PO QAM RF: 0 Excedrin Tension Headache 500-65 mg tablet 2 tab PO QAM RF: 0 diphenhydramine-acetaminophen [Tylenol PM Extra Strength] 25-500 mg tablet 2 tab PO HS RF: 0 atorvastatin 20 mg tablet 20 mg PO QPM Qty: 90 RF: 3 diltiazem HCl 300 mg capsule,extended release 24hr 300 mg PO QPM Qty: 90 RF: 3 loratadine [Claritin Liqui-Gel] 10 mg capsule 10 mg PO DAILY RF: 0 tramadol 50 mg tablet 100 mg PO Q8H Qty: 540 RF: 0 epinephrine [EpiPen 2-Delroy] 0.3 mg/0.3 mL auto-injector 0.3 mg IM ONCE PRN (Reason: allergic reaction) Qty: 1 RF: 0 alprazolam [Xanax] 0.25 mg tablet 0.25 mg PO TID RF: 0 vitamin B complex Tablet 1 tab PO QAM RF: 0 valacyclovir 500 mg tablet 500 mg PO BID PRN (Reason: ud) RF: 0 fluticasone propionate [Flonase Allergy Relief] 50 mcg/actuation spray,suspension 1 sprays INTNAS DAILY PRN (Reason: Allergy Symptoms) RF: 0 meloxicam [Mobic] 15 mg tablet 15 mg PO QAM RF: 0 Discharge Orders: Discharge Order (Routine); Ordered 01/20/21 Ordered By: Michael Alexis Admission Data Admit Date/Time: 01/19/21 09:07 Attending Provider: Michael Alexis Admit Provider: Michael Alexis Primary Care Provider: Antony Knox
[2021-01-20] MEDS ORDERED: dexAMETHasone 4 MG TAB PO SCH (08:00)
[2021-01-20] MEDS: PANTOprazole 40 MG TAB PO SCH (08:11)
[2021-01-20] MEDS: oxyCODONE HCL IR 5 MG TAB (IMMEDIATE RELEASE) PO PRN (08:11)
[2021-01-20] MEDS: ASPIRIN 81 MG ECTAB PO SCH (08:11)
[2021-01-20] MEDS: ALPRAZolam 0.25 MG TABLET PO SCH (08:11)
[2021-01-20] MEDS: DOCUSATE SODIUM 100 MG CAP PO SCH (08:12)
[2021-01-20] MEDS ORDERED: MULTIVITAMIN TAB PO SCH (09:00)
[2021-01-20] MEDS ORDERED: LOSARTAN/HCTZ 50/12.5MG TAB PO SCH (09:00)
[2021-01-20] MEDS ORDERED: LORATADINE 10 MG TAB PO SCH (09:00)
== END 2021-01-20 11:09 | disposition home or self-care (01) ==
LOC: 3E 05:20 → ASU 05:20

== ENCOUNTER 2024-07-01 16:49 | Inpatient (IN) ==
--- NOTE | 2024-07-01 17:35 | Emergency Department Note ---
Impression & Plan KELLY (acute kidney injury), Dyspnea, Hyperkalemia ED Provider Note ED Provider Note NAME: BALJINDER RUGGIERO AGE:63 SEX: Female : 1960 ARRIVES VIA: Private vehicle INFORMANT: Patient ED PROVIDER(s): Lily Vidal DO CHIEF COMPLAINT: Referred by PCP HPI: This is a 63-year-old female who presents emergency department after she was contacted and instructed to come to the ER by her PCP due to abnormal outpatient labs. Patient was having routine labs done in preparation for a follow-up visit with hematology due to a history of low iron. She states her initial labs were done 2 days ago and she was called yesterday stating that her potassium level was abnormally high and they were going to have her do repeat labs. She went and had repeat labs done yesterday and was contacted today stating that her potassium level while improved compared to the first level was still elevated and she was encouraged to come to the emergency department. She states she does have a history of mild kidney dysfunction. She states no recent fevers, chills, or URI symptoms. No recent trauma or injury. No recent change in medications. She states she has intermittently noticed mild chest tightness/pressure and increasing shortness of breath with exertion however she attributed that to being "out of shape". She also thought perhaps that heat was contributing to her symptoms. No prior history of hyperkalemia. No recent sick contacts. PAST MEDICAL HISTORY:See Below PAST SURGICAL HISTORY:See Below FAMILY HISTORY:See Below SOCIAL HISTORY:See Below HOME MEDICATIONS:See Below ALLERGIES:See Below VITALS:See Below PHYSICAL EXAMINATION: GENERAL: alert, well appearing, well nourished, no distress, non-toxic EYE EXAM: normal conjunctiva, PERRL and EOM's grossly intact OROPHARYNX: no exudate, no erythema, lips, buccal mucosa, and tongue normal and mucous membranes are moist NECK: supple, no nuchal rigidity, no adenopathy, non-tender LUNGS: Clear to auscultation. Normal chest wall mechanics, no w/r/r HEART: no murmurs, S1 normal and S2 normal ABDOMEN: abdomen soft, non-tender, normo-active bowel sounds, no masses, no rebound or guarding. SKIN: no rashes, petechiae, orbruising UPPER EXTREMITIES: upper extremities are grossly normal. FROM, nml pulses b/l. LOWER EXTREMITIES: No pitting edema. FROM, nml pulses b/l. NEURO EXAM: Normal sensorium, cranial nerves II-XII grossly intact, normal speech, no facial droop,nogross weakness of arms, no gross weakness of legs. Gross sensation intact. No ataxia. Vital Signs: reviewed and remarkable Differential Diagnosis: KELLY, CKD, medication ADR, dehydration, occult infection, rhabdomyolysis, dysrhythmia, CHF, as well as others were considered MEDICAL DECISION MAKING: This is a 63-year-old female referred to the emergency department by her PCP due to abnormal outpatient labs. Patient noted to have hyperkalemia during a check of labs this week. Upon repeat it was still elevated and she was referred here for additional evaluation and management. She was afebrile and hemodynamically stable on arrival. Labs drawn and sent, IV established, EKG and chest ray performed at bedside interpreted by me and patient monitored on telemetry. She was started on gentle IV fluid rehydration as a precaution. Patient does have a prior history of mild CKD. Labs today did show hyperkalemia and KELLY on top of her CKD. Urine collected and sent additionally. No EKG changes noted and no dysrhythmia noted on telemetry. Patient does take spironolactone and olmesartan which could be contributing to her hyperkalemia. I do not feel patient requires emergent therapy for hyperkalemia at this time. Will add renal ultrasound as a precaution. UA without hematuria or evidence of infection. Patient noted to have hypercalcemia additionally, iCal added to labs. Patient had no new or evolving symptoms on monitor in the emergency department. [facility] Renal ultrasound and iCal, pending at time of this discussion. Consultation(s): 1930: Discussed with Lincoln Merchant PA-C, [facility] ER Treatment Provided: See below Diagnostics Interpreted By Me: -ECG: Sinus bradycardia 59, normal axis, normal intervals, flattened T waves noted in leads III, slight T wave inversion noted in V3, no other acute ST/T wave changes -Cardiac Monitoring: An order was placed for continuous cardiac monitoring. The monitor shows a rate of 59 with sinus bradycardia rhythm. -Laboratory studies: As stated above and show below. -Imaging studies: X-ray Chest: A single view study of the chest was reviewed and was negative for cardiomegaly, focal infiltrate, effusion, pulmonary edema, or wide mediastinum. Triage Nursing Note Reviewed Prior/Outside Records Reviewed Past Med/Surg History Problem List (Updated 07/01/24 @ 20:15 by Lincoln Merchant PA-C) DMII (diabetes mellitus, type 2) KELLY (acute kidney injury) (Acute) Hyperkalemia (Acute) Dyspnea (Acute) Postmenopausal atrophic vaginitis (Acute) Positive sm/TEACHER VISUALLY IMPAIRED antibody (Acute) Positive antinuclear antibody (Acute) Mitral valve prolapse syndrome (Acute) Limb pain (Acute) Herpes simplex virus (HSV) infection (Acute) Generalized osteoarthritis of multiple sites (Acute) Essential familial hypercholesterolemia (Acute) Dysphagia (Acute) RESOLVED GERD (gastroesophageal reflux disease) (Acute) Sensorineural hearing loss of both ears History of basal cell carcinoma Pulmonary nodule Constipation by delayed colonic transit (Chronic) Ingrown toenail of left foot Osteoarthritis of right knee Elevated serum creatinine Obesity IBS (irritable colon syndrome) Anemia Need for Tdap vaccination Preventative health care Bilateral hip pain Lumbar spinal stenosis Moderate at L4-L5 History of obesity CKD (chronic kidney disease) stage 3, GFR 30-59 ml/min History of prediabetes Anxiety Mixed hyperlipidemia Ascending aortic aneurysm per PCP note stable since 2017--monitored yearly Glaucoma Eosinophilic esophagitis Tinnitus of right ear Hypertension Multinodular thyroid (Acute) GETS CHECKED YEARLY > HASN'T CHANGED Mixed connective tissue disease (Acute) NO LONGER FOLLOWS WITH RHEUM Gastroesophageal reflux disease (Acute) Karla-Danlos, hypermobile type (Acute) FOLLOWS DR. LINDSAY PRESENTLY - DOES HAVE ASSOCIATED MVP, MIXED CONNECTIVE TISSUE DISEASE, LOOSE JOINTS Depression (Acute) Asthma (Acute) YEARS AGO PER PT> NO INH- WELL CONTROLLED AND STABLE Medical History Foraminal stenosis of lumbar region History of COVID-19 10/2022--mild symptoms, no symptoms now History of obesity CKD (chronic kidney disease) stage 3, GFR 30-59 ml/min History of prediabetes Mixed hyperlipidemia Ascending aortic aneurysm per PCP note stable since 2018--monitored yearly Glaucoma Hyperlipidemia Eosinophilic esophagitis Scoliosis Osteoarthritis Constipation CHRONIC Hearing deficit BL RIZZO Anxiety Mitral valve prolapse does not follow w/ cardio Tinnitus of right ear Asthma YEARS AGO PER PT> NO INH- WELL CONTROLLED AND STABLE Depression Karla-Danlos, hypermobile type FOLLOWS DR. LINDSAY PRESENTLY - DOES HAVE ASSOCIATED MVP, MIXED CONNECTIVE TISSUE DISEASE, LOOSE JOINTS Gastroesophageal reflux disease Mixed connective tissue disease NO LONGER FOLLOWS WITH RHEUM Multinodular thyroid GETS CHECKED YEARLY > HASN'T CHANGED Hypertension Lupus SLE Surgical History Status post left hip replacement (~12/2020) History of adenoidectomy History of myringotomy History of Mohs micrographic surgery for skin cancer History of hysterectomy with unilateral oophorectomy History of total left knee replacement History of esophagogastroduodenoscopy (EGD) History of elbow surgery S/P tonsillectomy H/O oral surgery H/O laparoscopy History of dilation and curettage H/O colonoscopy History of cryosurgery H/O LEEP Family History Father Stomach cancer Hearing loss Bladder cancer Dyslipidemia Non-Hodgkin lymphoma Sinusitis Hypertension Diabetes Mother Skin cancer Hearing loss Osteoporosis Dyslipidemia Kidney disease Breast cancer Hypertension Post-operative nausea and vomiting Cancer of kidney Family/Other Bleeding Sister Myasthenia gravis Social History Smoking Status: Never smoker Second Hand Exposure: Yes (hx as child); Do You Dip or Chew Tobacco: No; Hx Alcohol Use: No Hx Substance Use: No Preferred Language: Cook Islander Communication Ability: Effective Visual Impairment: No Limitations 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 Beliefs That Will Affect Care: None marital status: Current Living Situation: Spouse current occupational status: retired Other Information That Helps Us Care for You: No Feels Safe at Home: Yes Safety Concerns: Feels Safe At This Time Physical Activity Frequency: 3-4 Times per Week Assistive Devices: Glasses Allergies Allergies Allergy/AdvReac Type Severity Reaction Status Date / Time red dye Allergy Severe JEFFREY RED Verified 07/01/24 20:00 DYE - DIFFICULTY BREATHING, SWELLING pollen extracts Allergy Intermediate ITCHY Verified 07/01/24 20:00 EYES, SNEEZING, CONGESTION chlorhexidine Allergy Mild Rash Verified 07/01/24 20:00 adhesive tape AdvReac Mild Redness of Verified 07/01/24 20:00 Skin Home Meds Home Medications Medication Instructions Recorded Confirmed fluticasone propionate 50 1 sprays intranasal HS 01/10/20 07/01/24 mcg/actuation nasal spray,suspension (Flonase Allergy Relief) vitamin B complex 1 tab PO QAM 01/10/20 07/01/24 acetaminophen-caffeine 500 mg-65 2 tab PO QAM 06/06/20 07/01/24 mg tablet (Excedrin Tension Headache) cholecalciferol (vitamin D3) 100 100 mcg PO QAM 06/06/20 07/01/24 mcg (4,000 unit) capsule diphenhydramine 25 2 tab PO HS 06/06/20 07/01/24 mg-acetaminophen 500 mg tablet (Tylenol PM Extra Strength) loratadine 10 mg capsule (Claritin 10 mg PO QAM 12/14/20 07/01/24 Liqui-Gel) melatonin 10 mg capsule 10 mg PO HS 01/28/22 07/01/24 timolol 0.5 % eye drops 1 drp OPR QAM 10/01/23 07/01/24 metformin 500 mg tablet,extended 500 mg PO QAM 11/21/23 07/01/24 release 24 hr citalopram 40 mg tablet 40 mg PO QPM 07/01/24 07/01/24 moxifloxacin 0.5 % eye drops 1 drp ophthalmic (eye) UD 07/01/24 07/01/24 prednisolone acetate 1 % eye 1 drp ophthalmic (eye) UD 07/01/24 07/01/24 drops,suspension Previous Rx's Medication Instructions Recorded epinephrine 0.3 mg/0.3 mL 0.3 mg (0.3 mL) IM ONCE PRN 01/13/20 injection, auto-injector (EpiPen allergic reaction #1 ea 2-Delroy) valacyclovir 500 mg tablet 500 mg PO BID PRN HSV #6 tabs 11/05/21 lidocaine 5 % topical patch 1 patch topical DAILY PRN pain #15 11/11/23 ea buspirone 10 mg tablet 10 mg PO TID #270 tabs 01/21/24 atorvastatin 20 mg tablet 20 mg PO QPM #90 tabs 02/11/24 olmesartan 40 mg tablet 40 mg PO QAM #90 tabs 02/11/24 pantoprazole 40 mg tablet,delayed 40 mg PO BID #180 tabs 02/11/24 release spironolactone 50 mg tablet 50 mg PO QAM #90 tabs 02/11/24 tramadol 50 mg tablet 100 mg (2 x 50 mg) PO BID PRN pain 06/03/24 #120 tabs diltiazem HCl 300 mg 300 mg PO QPM #90 caps 06/04/24 capsule,extended release 24 hr gabapentin 300 mg capsule 300 mg PO DAILY PRN pain #90 caps 06/04/24 meloxicam 7.5 mg tablet 7.5 mg PO BID #180 tabs 06/04/24 topiramate 25 mg tablet 25 mg PO HS #90 tabs 06/04/24 lorazepam 0.5 mg tablet 0.25 mg (1/2 x 0.5 mg) PO HS PRN 06/29/24 anxiety #15 tabs Results & Data (ED) Vital Signs Vital Signs - 24 hr 07/01/24 16:49 07/01/24 17:13 07/01/24 17:13 Temperature 36.8 C Temperature Source Temporal Artery Scan Pulse Rate 70 Respiratory Rate 18 Respiratory Depth Normal Blood Pressure 131/84 Blood Pressure [Right Arm] Blood Pressure Mean 99 Blood Pressure Mean [Right Arm] Pulse Oximetry 95 Oxygen Delivery Method Room Air Room Air Room Air Sepsis Recent Fever Within 48 Hours No Sepsis New/Unexplained Change in Mental Status N/A Sepsis Action Taken by Nursing No Action Required 07/01/24 17:13 07/01/24 19:15 Temperature Temperature Source Pulse Rate 60 Respiratory Rate 22 Respiratory Depth Normal Blood Pressure Blood Pressure [Right Arm] 124/79 Blood Pressure Mean Blood Pressure Mean [Right Arm] 94 Pulse Oximetry 96 Oxygen Delivery Method Room Air Sepsis Recent Fever Within 48 Hours Sepsis New/Unexplained Change in Mental Status Sepsis Action Taken by Nursing Laboratory Data 07/01/24 17:26 07/01/24 21:17 Lab Results 07/01/24 07/01/24 07/01/24 Range/Units 17:26 18:54 19:13 WBC 5.77 (4.8-10.8) K/ul RBC 3.80 L (4.20-5.40) M/uL Hgb 11.3 L (12.0-16.0) g/dl Hct 36.3 L (37.0-47.0) % MCV 95.5 (80.0-100.0) fL MCH 29.7 (25.0-34.0) pg MCHC 31.1 L (32.0-36.0) g/dL RDW Std Deviation 52.8 H (36.4-46.3) fL RDW Coeff of [place] 14.9 H (11.5-14.5) % Plt Count 241 (130-400) K/uL MPV 11.0 (9.4-12.4) fL Immature Gran % (Auto) 0.2 % Neut % (Auto) 50.5 % Lymph % (Auto) 31.5 % [place] % (Auto) 7.5 % Eos % (Auto) 8.7 % Baso % (Auto) 1.6 % Neut # (Auto) 2.92 (1.40-6.50) K/uL Lymph # (Auto) 1.82 (1.20-3.40) K/uL [place] # (Auto) 0.43 (0.11-0.59) K/uL Eos # (Auto) 0.50 (0.00-0.50) K/uL Baso # (Auto) 0.09 (0.00-0.20) K/uL Immature Gran # (Auto) 0.01 (0.01-0.20) K/uL Sodium 140 (136-145) mmol/L Potassium 6.2 H* (3.5-5.1) mmol/L Chloride 115 H (98-107) mmol/L Carbon Dioxide 19 L (21-32) mmol/L Anion Gap 6 (3-11) BUN 36 H (6-23) mg/dl Creatinine 1.85 H D (0.6-1.2) mg/dl Est Cr Clr Drug Dosing 34.0 ml/min Est GFR ( Amer) 33.5 ml/min Est GFR (Non-Af Amer) 28.9 ml/min BUN/Creatinine Ratio 19.5 (10-20) Glucose 84 (70-99(Fasting)) mg/dl Calcium 11.2 H (8.6-10.3) mg/dl Ionized Calcium 1.47 H (1.12-1.32) mmol/L Phosphorus 3.2 (2.5-4.9) mg/dl Magnesium 1.4 L (1.7-2.4) mg/dl Total Bilirubin 0.4 (0.2-1.0) mg/dl AST 26 (13-39) U/L ALT 41 (7-52) U/L Alkaline Phosphatase 81 (34-104) U/L Troponin I High Sens < 2.3 (0-14) pg/ml Total Protein 7.5 (6.0-8.3) gm/dl Albumin 4.8 (3.4-5.0) gm/dl Globulin 2.7 (2.5-4.0) gm/dl Albumin/Globulin Ratio 1.8 (0.9-2) TSH 1.088 (0.300-4.500) uIu/ml Urine Color Dark Yellow Urine Appearance Clear (Clear) Urine pH 7.5 (4.5-7.5) Ur Specific [place] 1.014 (1.000-1.030) Urine Protein Negative (Negative) Urine Glucose (UA) Negative (Negative) Urine Ketones Negative (Negative) Urine Blood Negative (Negative) Urine Nitrite Negative (Negative) Urine Bilirubin Negative (Negative) Urine Urobilinogen Negative (Negative) Ur Leukocyte Esterase 2+ H (Negative) Urine WBC (Auto) 0-5 (0-5) /hpf Urine RBC (Auto) 0-2 (0-2) /hpf U Hyaline Cast (Auto) 0-2 (0-2) /lpf U Epithel Cells (Auto) 0-2 (0-2) /hpf Urine Bacteria (Auto) None Seen (None Seen) Administered Medications Atorvastatin Calcium (Atorvastatin 20 Mg Tab) 20 mg PO QPM [facility] Stop: 07/31/24 20:59 Last Admin: 07/01/24 21:36 Dose: 20 mg Documented By: KANIKA Buspirone HCl (Buspirone 5 Mg Tab) 10 mg PO TID [facility] Stop: 07/31/24 20:59 Last Admin: 07/01/24 21:22 Dose: 10 mg Documented By: KANIKA Citalopram Hydrobromide (Citalopram 40 Mg Tab) 40 mg PO QPM [facility] Stop: 07/31/24 20:59 Last Admin: 07/01/24 21:21 Dose: 40 mg Documented By: KANIKA Diltiazem HCl (Diltiazem Hcl 300 Mg Capcr) 300 mg PO QPM [facility] Stop: 07/31/24 20:59 Last Admin: 07/01/24 21:20 Dose: 300 mg Documented By: KANIKA Lactated Ringer's (Lr) 1,000 mls @ 100 mls/hr IV .Q10H ANA Stop: 07/02/24 06:59 Last Admin: 07/01/24 21:34 Dose: 100 mls/hr Documented By: KANIKA Insulin Aspart (Insulin Aspart Per Unit Charge) 0 units SC ACHS ANA Stop: 07/31/24 20:59 Last Admin: 07/01/24 21:42 Dose: Not Given Documented By: KANIKA Lorazepam (Lorazepam 0.5 Mg Tab) 0.25 mg PO HS PRN PRN Reason: anxiety Stop: 07/31/24 20:37 Last Admin: 07/01/24 21:35 Dose: 0.25 mg Documented By: KANIKA Pantoprazole Sodium (Pantoprazole 40 Mg Tab) 40 mg PO BID ANA Stop: 07/31/24 20:59 Last Admin: 07/01/24 21:21 Dose: 40 mg Documented By: KANIKA Topiramate (Topiramate 25 Mg Tab) 25 mg PO HS ANA Stop: 07/31/24 20:59 Last Admin: 07/01/24 21:20 Dose: 25 mg Documented By: KANIKA Discontinued Medications Albuterol (Albuterol 0.5% Neb Soln 2.5 Mg/0.5 Ml Vial) 2.5 mg NEB NOW STA; Protocol Stop: 07/01/24 19:55 Last Admin: 07/01/24 20:08 Dose: 2.5 mg Documented By: ANNETTE Dextrose (Dextrose 50% 50 Ml Syringe) 50 ml IV NOW STA Stop: 07/01/24 19:43 Last Admin: 07/01/24 20:11 Dose: 50 ml Documented By: ANNETTE Sodium Chloride (Nss) 1,000 mls @ 125 mls/hr IV .Q8H ANA Stop: 07/31/24 19:14 Last Admin: 07/01/24 19:28 Dose: Not Given Documented By: ANNETTE Lactated Ringer's (Lr) 1,000 mls @ 999 mls/hr IV .Q1H1M ONE Stop: 07/01/24 20:21 Last Infusion: 07/01/24 20:59 Dose: Infused Documented By: Admin: 07/01/24 19:29 Dose: 999 mls/hr Documented By: ANNETTE Calcium Gluconate () 1,000 mg in 60 mls @ 240 mls/hr IV NOW STA Stop: 07/01/24 19:46 Last Infusion: 07/01/24 20:59 Dose: Infused Documented By: Admin: 07/01/24 20:09 Dose: 240 mls/hr Documented By: ANNETTE Insulin Human Regular 10 units (/ Syringe) 10 mls @ 3 mls/sec IV NOW STA Stop: 07/01/24 19:49 Last Admin: 07/01/24 20:20 Dose: 3 mls/sec Documented By: ANNETTE Co-signed By: ARMAND Magnesium Sulfate/Dextrose (Magnesium Sulfate / D5w) 1 gm in 100 mls @ 50 mls/hr IV Q2H ANA Stop: 07/02/24 00:29 Last Admin: 07/01/24 23:45 Dose: 50 mls/hr Documented By: Infusion: 07/01/24 23:34 Dose: Infused Documented By: Admin: 07/01/24 21:34 Dose: 50 mls/hr Documented By: KANIKA Imaging Data Radiologist's Impression: Chest X-Ray 07/01/24 17:51 XR chest 1V portable CLINICAL HISTORY: Dyspnea. COMPARISON STUDY: Chest radiograph December 20, 2020. Chest CT August 23, 2021. FINDINGS: Lung volumes are normal. Lungs are clear. There is no pneumothorax or pleural effusion. Mild cardiomegaly is unchanged. Mediastinal contours are normal. There is no evidence for pulmonary edema. IMPRESSION: No acute cardiopulmonary findings. ACT 112: Negative or not required by law. Electronically signed by: Noe Stokes M.D. 07/01/2024 6:27 PM Discharge Plan Visit Data Chief Complaint: Shortness of Breath/Dyspnea Stated Complaint: ABN LABS, HIGH POTASSIUM, SOB ED Provider: Lily Vidal Discharge Problem: KELLY (acute kidney injury), Dyspnea, Hyperkalemia Patient Disposition: Admitted As Inpatient Discharge Instructions Interventions: ED Discharge Assessment Last Done: 07/01/24 20:47
[2024-07-01 18:09] LABS: Basophils # (auto) 0.09 K/uL (0.00-0.20); Basophils % (auto) 1.6 %; Eosinophils % (auto) 8.7 %; Hematocrit (blood only) 36.3 % (37.0-47.0); Hemoglobin 11.3 g/dl (12.0-16.0); Immature Granulocytes # (auto) 0.01 K/uL (0.01-0.20); Immature Granulocytes % (auto) 0.2 %; Lymphocytes # (auto) 1.82 K/uL (1.20-3.40); Lymphocytes % (auto) 31.5 %; Mean Corpuscular Hemoglobin 29.7 pg (25.0-34.0); Mean Corpuscular Hgb Conc 31.1 g/dL (32.0-36.0); Mean Corpuscular Volume 95.5 fL (80.0-100.0); Monocytes # (auto) 0.43 K/uL (0.11-0.59); Monocytes % (auto) 7.5 %; Neutrophils # (auto) 2.92 K/uL (1.40-6.50); Neutrophils % (auto) 50.5 %; Platelet Count 241 K/uL (130-400); RDW Coefficient of Variation 14.9 % (11.5-14.5); RDW Standard Deviation 52.8 fL (36.4-46.3); White Blood Count 5.77 K/ul (4.8-10.8)
--- NOTE | 2024-07-01 18:28 | XRay Report ---
XR chest 1V portable CLINICAL HISTORY: Dyspnea. COMPARISON STUDY: Chest radiograph December 20, 2020. Chest CT August 23, 2021. FINDINGS: Lung volumes are normal. Lungs are clear. There is no pneumothorax or pleural effusion. Mil d cardiomegaly is unchanged. Mediastinal contours are normal. There is no evidence for pulmonary david a. IMPRESSION: No acute cardiopulmonary findings. ACT 112: Negative or not required by law. Electronically signed by: Noe Stokes M.D. 07/01/2024 6:27 PM
[2024-07-01 18:30] LABS: Alanine Aminotransferase 41 U/L (7-52); Albumin Globulin Ratio 1.8 (0.9-2); Albumin Level 4.8 gm/dl (3.4-5.0); Alkaline Phosphatase 81 U/L (34-104); Anion Gap 6 (3-11); Aspartate Aminotransferase 26 U/L (13-39); BUN Creatinine Ratio 19.5 (10-20); Bilirubin,Total 0.4 mg/dl (0.2-1.0); Blood Urea Nitrogen 36 mg/dl (6-23); Calcium 11.2 mg/dl (8.6-10.3); Carbon Dioxide 19 mmol/L (21-32); Chloride 115 mmol/L (98-107); Est GFR (African American) 33.5 ml/min; Est GFR (Non-African American) 28.9 ml/min; Globulin 2.7 gm/dl (2.5-4.0); Glucose 84 mg/dl (70-99(Fasting)); Potassium 6.2 mmol/L (3.5-5.1); Sodium 140 mmol/L (136-145); Total Protein 7.5 gm/dl (6.0-8.3)
[2024-07-01 18:34] LABS: Troponin I High Sensitivity < 2.3 pg/ml (0-14)
[2024-07-01 19:07] LABS: Appearance Urine Clear (Clear); Bacteria Urine Automated None Seen (None Seen); Bilirubin Urine Negative (Negative); Blood Urine Negative (Negative); Cast Urine Automated 0-2 /lpf (0-2); Color Urine Dark Yellow; Epithelial Cell Urine Auto 0-2 /hpf (0-2); Glucose Urine UA Negative (Negative); Ketones Urine Negative (Negative); Leukocyte Esterase Urine 2+ (Negative); Nitrite Urine Negative (Negative); Protein Urine Negative (Negative); RBC Urine Automated 0-2 /hpf (0-2); Specific Gravity Urine 1.014 (1.000-1.030); Urobilinogen Urine Negative (Negative); WBC Urine Automated 0-5 /hpf (0-5); pH Urine 7.5 (4.5-7.5)
--- NOTE | 2024-07-01 19:18 | History & Physical Report ---
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 due to recurrent labs showing KELLY and hyperkalemia Potassium on admission 6.2, she does appear to have some peaked T waves on EKG today Her hyperkalemia is likely a combination of her KELLY and being on both spironolactone and olmesartan, which are both potassium sparing I stop the NSS prior to being started in the ED, will give 1 L LR bolus to start Will give 10 units IV insulin with an amp of dextrose, 1 g calcium gluconate, and albuterol neb now Will repeat potassium level approximately 2 hours after admission Hold spironolactone and olmesartan at this time as blood pressure is stable Will likely continue maintenance LR after the initial 1 L bolus Bilateral SCD's for DVT prophylaxis DM type II and low potassium diet AM CBC, BMP, mag, PT/INR (2) KELLY (acute kidney injury): Plan: Creatinine of 1.85, baseline is near 1.3 Likely due to a combination of dehydration, ongoing losartan use, daily meloxicam use Denies taking other [id number] NSAIDs along with meloxicam and denies recent alcohol use Continue IV hydration overnight, hold olmesartan, spironolactone, meloxicam Follow renal ultrasound ordered in the ED (3) Dyspnea: Plan: Patient notes mild shortness of breath normally at night No recent chest discomfort or other respiratory symptoms Likely due to her known asthma she has mild expiratory wheezing on exam Chest x-ray is negative for acute findings Will give an albuterol neb and continue as needed (4) DMII (diabetes mellitus, type 2): Plan: Monitor BG ACHS, goal is [id number] Hold metformin Start CF of 15 CR 15 ACHS Adjust regimen as needed Plan The patient was discussed with Dr. 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 She remained stable in the ED. Labs were significant for a creatinine of 1.85 (baseline has been near 1.3), BUN of 36, bicarb of 19, chloride of 115 with potassium of 6.2, calcium of 11.2, and UA with 2+ leukocyte Estrace but otherwise unremarkable. Chest x-ray was read as negative for acute findings. Prior to admission the patient was Normal saline at 125 mL/h. Patient was seen in bed in no acute distress at time of exam with bedside. She confirms the above history. Has otherwise been in her normal state of health. Denies recent fever, chills, chest pain, shortness of breath, abdominal pain, nausea/vomiting, dysuria, hematuria, melena, lower extremity swelling, recent trauma. She is a full code and would want her to make medical decisions for her if she cannot bring himself. Please refer to Dr. Monk's attestation for any changes to treatment plan Allergies Allergy/AdvReac Type Severity Reaction Status Date / Time red dye Allergy Severe JEFFREY RED Verified 07/01/24 20:00 DYE - DIFFICULTY BREATHING, SWELLING pollen extracts Allergy Intermediate ITCHY Verified 07/01/24 20:00 EYES, SNEEZING, CONGESTION chlorhexidine Allergy Mild Rash Verified 07/01/24 20:00 adhesive tape AdvReac Mild Redness of Verified 07/01/24 20:00 Skin Home Medications Medication Instructions Recorded Confirmed Type fluticasone propionate 50 1 sprays intranasal HS 01/10/20 07/01/24 History mcg/actuation nasal spray,suspension (Flonase Allergy Relief) vitamin B complex 1 tab PO QAM 01/10/20 07/01/24 History epinephrine 0.3 mg/0.3 mL 0.3 mg (0.3 mL) IM ONCE PRN 01/13/20 07/01/24 Rx injection, auto-injector (EpiPen allergic reaction #1 ea 2-Delroy) acetaminophen-caffeine 500 mg-65 2 tab PO QAM 06/06/20 07/01/24 History mg tablet (Excedrin Tension Headache) cholecalciferol (vitamin D3) 100 100 mcg PO QAM 06/06/20 07/01/24 History mcg (4,000 unit) capsule diphenhydramine 25 2 tab PO HS 06/06/20 07/01/24 History mg-acetaminophen 500 mg tablet (Tylenol PM Extra Strength) loratadine 10 mg capsule (Claritin 10 mg PO QAM 12/14/20 07/01/24 History Liqui-Gel) valacyclovir 500 mg tablet 500 mg PO BID PRN HSV #6 tabs 11/05/21 07/01/24 Rx melatonin 10 mg capsule 10 mg PO HS 01/28/22 07/01/24 History timolol 0.5 % eye drops 1 drp OPR QAM 10/01/23 07/01/24 History lidocaine 5 % topical patch 1 patch topical DAILY PRN pain #15 11/11/23 07/01/24 Rx ea metformin 500 mg tablet,extended 500 mg PO QAM 11/21/23 07/01/24 History release 24 hr buspirone 10 mg tablet 10 mg PO TID #270 tabs 01/21/24 07/01/24 Rx atorvastatin 20 mg tablet 20 mg PO QPM #90 tabs 02/11/24 07/01/24 Rx olmesartan 40 mg tablet 40 mg PO QAM #90 tabs 02/11/24 07/01/24 Rx pantoprazole 40 mg tablet,delayed 40 mg PO BID #180 tabs 02/11/24 07/01/24 Rx release spironolactone 50 mg tablet 50 mg PO QAM #90 tabs 02/11/24 07/01/24 Rx tramadol 50 mg tablet 100 mg (2 x 50 mg) PO BID PRN pain 06/03/24 07/01/24 Rx #120 tabs diltiazem HCl 300 mg 300 mg PO QPM #90 caps 06/04/24 07/01/24 Rx capsule,extended release 24 hr gabapentin 300 mg capsule 300 mg PO DAILY PRN pain #90 caps 06/04/24 07/01/24 Rx meloxicam 7.5 mg tablet 7.5 mg PO BID #180 tabs 06/04/24 07/01/24 Rx topiramate 25 mg tablet 25 mg PO HS #90 tabs 06/04/24 07/01/24 Rx lorazepam 0.5 mg tablet 0.25 mg (1/2 x 0.5 mg) PO HS PRN 06/29/24 07/01/24 Rx anxiety #15 tabs citalopram 40 mg tablet 40 mg PO QPM 07/01/24 07/01/24 History moxifloxacin 0.5 % eye drops 1 drp ophthalmic (eye) UD 07/01/24 07/01/24 History prednisolone acetate 1 % eye 1 drp ophthalmic (eye) UD 07/01/24 07/01/24 History drops,suspension Past Med/Surg History Problem List (Updated 07/01/24 @ 20:15 by Lincoln Merchant PA-C) DMII (diabetes mellitus, type 2) KELLY (acute kidney injury) (Acute) Hyperkalemia (Acute) Dyspnea (Acute) Postmenopausal atrophic vaginitis (Acute) Positive sm/AUTO ENGINE MECHANIC antibody (Acute) Positive antinuclear antibody (Acute) Mitral valve prolapse syndrome (Acute) Limb pain (Acute) Herpes simplex virus (HSV) infection (Acute) Generalized osteoarthritis of multiple sites (Acute) Essential familial hypercholesterolemia (Acute) Dysphagia (Acute) RESOLVED GERD (gastroesophageal reflux disease) (Acute) Sensorineural hearing loss of both ears History of basal cell carcinoma Pulmonary nodule Constipation by delayed colonic transit (Chronic) Ingrown toenail of left foot Osteoarthritis of right knee Elevated serum creatinine Obesity IBS (irritable colon syndrome) Anemia Need for Tdap vaccination Preventative health care Bilateral hip pain Lumbar spinal stenosis Moderate at L4-L5 History of obesity CKD (chronic kidney disease) stage 3, GFR 30-59 ml/min History of prediabetes Anxiety Mixed hyperlipidemia Ascending aortic aneurysm per PCP note stable since 2017--monitored yearly Glaucoma Eosinophilic esophagitis Tinnitus of right ear Hypertension Multinodular thyroid (Acute) GETS CHECKED YEARLY > HASN'T CHANGED Mixed connective tissue disease (Acute) NO LONGER FOLLOWS WITH RHEUM Gastroesophageal reflux disease (Acute) Karla-Danlos, hypermobile type (Acute) FOLLOWS DR. LINDSAY PRESENTLY - DOES HAVE ASSOCIATED MVP, MIXED CONNECTIVE TISSUE DISEASE, LOOSE JOINTS Depression (Acute) Asthma (Acute) YEARS AGO PER PT> NO INH- WELL CONTROLLED AND STABLE Medical History Foraminal stenosis of lumbar region History of COVID-19 10/2022--mild symptoms, no symptoms now History of obesity CKD (chronic kidney disease) stage 3, GFR 30-59 ml/min History of prediabetes Mixed hyperlipidemia Ascending aortic aneurysm per PCP note stable since 2017--monitored yearly Glaucoma Hyperlipidemia Eosinophilic esophagitis Scoliosis Osteoarthritis Constipation CHRONIC Hearing deficit BL RIZZO Anxiety Mitral valve prolapse does not follow w/ cardio Tinnitus of right ear Asthma YEARS AGO PER PT> NO INH- WELL CONTROLLED AND STABLE Depression Karla-Danlos, hypermobile type FOLLOWS DR. LINDSAY PRESENTLY - DOES HAVE ASSOCIATED MVP, MIXED CONNECTIVE TISSUE DISEASE, LOOSE JOINTS Gastroesophageal reflux disease Mixed connective tissue disease NO LONGER FOLLOWS WITH RHEUM Multinodular thyroid GETS CHECKED YEARLY > HASN'T CHANGED Hypertension Lupus SLE Surgical History Status post left hip replacement (~12/2020) History of adenoidectomy History of myringotomy History of Mohs micrographic surgery for skin cancer History of hysterectomy with unilateral oophorectomy History of total left knee replacement History of esophagogastroduodenoscopy (EGD) History of elbow surgery S/P tonsillectomy H/O oral surgery H/O laparoscopy History of dilation and curettage H/O colonoscopy History of cryosurgery H/O LEEP Family History Father Stomach cancer Hearing loss Bladder cancer Dyslipidemia Non-Hodgkin lymphoma Sinusitis Hypertension Diabetes Mother Skin cancer Hearing loss Osteoporosis Dyslipidemia Kidney disease Breast cancer Hypertension Post-operative nausea and vomiting Cancer of kidney Family/Other Bleeding Sister Myasthenia gravis Social History Smoking Status: Never smoker Second Hand Exposure: Yes (hx as child); Do You Dip or Chew Tobacco: No; Hx Alcohol Use: No Hx Substance Use: No Preferred Language: Cymro Communication Ability: Effective Visual Impairment: No 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 Beliefs That Will Affect Care: None marital status: Current Living Situation: Spouse current occupational status: retired Other Information That Helps Us Care for You: No Feels Safe at Home: Yes Safety Concerns: Feels Safe At This Time Physical Activity Frequency: 3-4 Times per Week Assistive Devices: Glasses Physical Exam Physical Exam: Physical Exam: General: In no acute distress, stated age, well-nourished, good hygiene HEENT: Normocephalic, atraumatic, no scleral icterus, pupils around round, symmetrical, and reactive to light, dry mucus membranes, trachea midline, no thyromegaly Chest/Pulm: No respiratory distress, symmetrical chest expansion, scattered expiratory wheezing throughout Cardiac: RRR, no murmurs noted Abdomen: Negative for ascites and bruising, normoactive bowel sounds, soft, non-tender to palpation throughout Musculoskeletal: Symmetrical and without signs of acute trauma, upper and lower extremities with full ROM, no atrophy, spasticity, or flaccidity Extremities: Radial, dorsalis pedis, and posterior tibial pulses are intact and symmetrical, no edema noted in the BL LE's Skin: Warm, dry, no rashes , lesions, or scars noted Neuro: Alert and oriented to person, place, month, year, and president, no focal defects, no tremors noted Psych: No acute distress, calm and cooperative during the exam Results & Data Results & Data Vital Signs (Past 12 Hours) Vital Signs Temp Pulse Resp BP BP Pulse Ox O2 Del Method 07/01/24 17:13 22 124/79 96 Room Air 07/01/24 17:13 Room Air 07/01/24 17:13 Room Air 07/01/24 16:49 36.8 C 70 18 131/84 95 Room Air Laboratory Results Abnormal lab results 07/01/24 07/01/24 07/01/24 Range/Units 17:26 18:54 19:13 RBC 3.80 L (4.20-5.40) M/uL Hgb 11.3 L (12.0-16.0) g/dl Hct 36.3 L (37.0-47.0) % MCHC 31.1 L (32.0-36.0) g/dL RDW Std Deviation 52.8 H (36.4-46.3) fL RDW Coeff of Kiel 14.9 H (11.5-14.5) % Potassium 6.2 H* (3.5-5.1) mmol/L Chloride 115 H (98-107) mmol/L Carbon Dioxide 19 L (21-32) mmol/L BUN 36 H (6-23) mg/dl Creatinine 1.85 H D (0.6-1.2) mg/dl Calcium 11.2 H (8.6-10.3) mg/dl Ionized Calcium 1.47 H (1.12-1.32) mmol/L Magnesium 1.4 L (1.7-2.4) mg/dl Ur Leukocyte Esterase 2+ H (Negative) Diagnostic Findings Chest X-Ray 07/01/24 17:51 XR chest 1V portable CLINICAL HISTORY: Dyspnea. COMPARISON STUDY: Chest radiograph December 20, 2020. Chest CT August 23, 2021. FINDINGS: Lung volumes are normal. Lungs are clear. There is no pneumothorax or pleural effusion. Mild cardiomegaly is unchanged. Mediastinal contours are normal. There is no evidence for pulmonary edema. IMPRESSION: No acute cardiopulmonary findings. ACT 112: Negative or not required by law. Electronically signed by: Noe Stokes M.D. 07/01/2024 6:27 PM ECG Additional Comments: Sinus bradycardia with peaked T waves in all leads Code Status & VTE Plan Code Status Full code VTE Prophylaxis Plan VTE Prophylaxis will be ordered: Yes Supervising Physician Co-Signing Physician Notes Attending addendum: I have physically seen this patient, have supervised the ANGEL LUIS's activities, and agree with the H&P unless as otherwise noted. Assessment and Plan: Hyperkalemia- Potassium was 6.0 on 06/30, and 6.2 this evening Given calcium gluconate 1 g IV and LR 1 L in the ED Give 50 mL of D50 followed by 10 units regular insulin IV Repeat BMP 1 hour Placed on LR at 80 mL/h x 1 L Hold spironolactone and olmesartan Acute kidney injury superimposed on CKD- Creatinine 1.85 on admission with base 1.36 IV fluids as noted above Holding spironolactone and olmesartan as noted Recheck laboratories in a.m. Hypomagnesemia- Magnesium 1.4 at admission Give 2 g magnesium sulfate IV recheck laboratories in a.m. Hypercalcemia- Calcium 11.2 on admission Repeat labs in a.m. after IV hydration as noted Diabetes mellitus type 2- Holding metformin Placed on Accu-Cheks with NovoLog SSI PG Care Time/CCT Total # of Minutes Spent Total Time Spent with Patient: Total time spent is greater than 50% in coordination of care (as documented) at patient's floor/unit and/or counseling patient: Coding [place] [address] INT INP/OBS CARE 3/75MIN Patient Type Established Medical Decision Making High Complexity Diagnoses Hyperkalemia E87.5 KELLY (acute kidney injury) N17.9 Dyspnea R06.00 DMII (diabetes mellitus, type 2) E11.9
[2024-07-01 19:23] LABS: Magnesium 1.4 mg/dl (1.7-2.4); Phosphorus 3.2 mg/dl (2.5-4.9); Thyroid Stimulating Hormone 1.088 uIu/ml (0.300-4.500)
[2024-07-01] MEDS: SODIUM CHLORIDE 0.9% 1,000 ML IV SCH (19:28)
[2024-07-01] MEDS: LACTATED RINGER'S 1,000 ML IV ONE (19:29)
[2024-07-01] MEDS ORDERED: ALBUTEROL 0.5% NEB SOLN 2.5 MG/0.5 ML VIAL NEB PRN (19:54)
[2024-07-01] MEDS: ALBUTEROL 0.5% NEB SOLN 2.5 MG/0.5 ML VIAL NEB STA (20:08)
[2024-07-01] MEDS: CALCIUM GLUCONATE 1,000 MG/60 ML BAG IV STA (20:09)
[2024-07-01] MEDS: DEXTROSE 50% 50 ML SYRINGE IV STA (20:11)
[2024-07-01] MEDS ORDERED: CARBOHYDRATES FOR HYPOGLYCEMIA PO PRN (20:13)
[2024-07-01] MEDS ORDERED: GLUCOSE 10 TAB/TUBE PO PRN (20:13)
[2024-07-01] MEDS ORDERED: DEXTROSE 50% 50 ML SYRINGE IV PRN (20:13)
[2024-07-01] MEDS ORDERED: GLUCAGON FOR INJ 1 MG VIAL SQ PRN (20:13)
[2024-07-01] MEDS ORDERED: GLUCOSE 40% GEL 15 GM TUBE PO PRN (20:13)
[2024-07-01] MEDS: INSULIN HUMAN REGULAR PER UNIT 10 UNITS in SYRINGE 9.9 ML IV STA (20:20)
[2024-07-01] MEDS ORDERED: traMADol HCL 50 MG TABLET PO PRN (20:38)
[2024-07-01] MEDS ORDERED: GABAPENTIN 300 MG CAP PO PRN (20:38)
[2024-07-01] MEDS: dilTIAZem HCL 300 MG CAPCR PO SCH (21:20)
[2024-07-01] MEDS: TOPIRAMATE 25 MG TAB PO SCH (21:20)
[2024-07-01] MEDS: CITALOPRAM 40 MG TAB PO SCH (21:21)
[2024-07-01] MEDS: PANTOprazole 40 MG TAB PO SCH (21:21)
[2024-07-01] MEDS: busPIRone 5 MG TAB PO SCH (21:22)
[2024-07-01] MEDS: MAGNESIUM SULFATE / D5W 1 GM/100 ML BAG IV SCH (21:34)
[2024-07-01] MEDS: LACTATED RINGER'S 1,000 ML IV SCH (21:34)
[2024-07-01] MEDS: LORazepam 0.5 MG TAB PO PRN (21:35)
[2024-07-01] MEDS: ATORVASTATIN 20 MG TAB PO SCH (21:36)
[2024-07-01] MEDS: INSULIN ASPART PER UNIT CHARGE SC SCH (21:42)
--- NOTE | 2024-07-02 03:17 | Ultrasound Report ---
Exam(s): US RENAL EXAM: US Retroperitoneal Limited, Renal CLINICAL HISTORY: Reason for exam: jennifer. TECHNIQUE: Real-time limited ultrasound of the retroperitoneum with image documentation. COMPARISON: No relevant prior studies available. FINDINGS: Right kidney: Right kidney measures 12.2 x 5.6 x 4.6 cm. There is a 1. 9 x 1.5 x 2 cm midpole septated cyst no hydronephrosis. Prominence of the fatty hilum. No stones. Left kidney: Left kidney measures 10.9 x 5.3 x 3.9 cm. No hydronephrosis. There are number of punctate 1-2 mm calcification. The may represent non-obstructing left renal calculi. IMPRESSION: No acute findings in the retroperitoneum. Electronically signed by: Cr Burgos MD 07/02/24 03:16 AM
[2024-07-02 06:21] LABS: Basophils # (auto) 0.09 K/uL (0.00-0.20); Basophils % (auto) 1.5 %; Eosinophils # (auto) 0.45 K/uL (0.00-0.50); Eosinophils % (auto) 7.6 %; Hematocrit (blood only) 35.2 % (37.0-47.0); Hemoglobin 11.2 g/dl (12.0-16.0); Immature Granulocytes # (auto) 0.02 K/uL (0.01-0.20); Immature Granulocytes % (auto) 0.3 %; Lymphocytes # (auto) 1.74 K/uL (1.20-3.40); Lymphocytes % (auto) 29.4 %; Mean Corpuscular Hemoglobin 30.1 pg (25.0-34.0); Mean Corpuscular Hgb Conc 31.8 g/dL (32.0-36.0); Mean Corpuscular Volume 94.6 fL (80.0-100.0); Mean Platelet Volume 10.5 fL (9.4-12.4); Monocytes # (auto) 0.49 K/uL (0.11-0.59); Monocytes % (auto) 8.3 %; Neutrophils # (auto) 3.13 K/uL (1.40-6.50); Neutrophils % (auto) 52.9 %; Platelet Count 219 K/uL (130-400); RDW Coefficient of Variation 14.7 % (11.5-14.5); RDW Standard Deviation 51.6 fL (36.4-46.3); Red Blood Count 3.72 M/uL (4.20-5.40); White Blood Count 5.92 K/ul (4.8-10.8)
[2024-07-02 07:08] LABS: Anion Gap 10.7 (3-11); Creatinine Clr Calc Pharmacy 42.6 ml/min; Est GFR (African American) 43.5; Est GFR (Non-African American) 37.5; Potassium 5.8 mmol/L (3.5-5.1)
[2024-07-02 07:09] LABS: BUN Creatinine Ratio 17.4 (10-20); Calcium 10.7 mg/dl (8.6-10.3); Magnesium 1.8 mg/dl (1.7-2.4)
--- NOTE | 2024-07-02 07:37 | Hospitalist Progress Note ---
Date of Service July 02, 2024 Assessment & Plan (1) Hyperkalemia: Plan: Admit to med telemetry Currently stable nontoxic-appearing Presented to ED today at the recommendation of her health educator due to recurrent labs showing KELLY and hyperkalemia Potassium on admission 6.2, she does appear to have some peaked T waves on EKG today Her hyperkalemia is likely a combination of her KELLY and being on both spironolactone and olmesartan, which are both potassium sparing I stop the NSS prior to being started in the ED, will give 1 L LR bolus to start Will give 10 units IV insulin with an amp of dextrose, 1 g calcium gluconate, and albuterol neb now Will repeat potassium level approximately 2 hours after admission Hold spironolactone and olmesartan at this time as blood pressure is stable Will likely continue maintenance LR after the initial 1 L bolus Bilateral SCD's for DVT prophylaxis DM type II and low potassium diet AM CBC, BMP, mag, PT/INR 07/02 K 6.2--> 5.0 on repeat but again elevated 5.8 this morning Ca gluconate/10 regular insulin/amp dextrose Patiromer PO x 1 1/2NS + 50meq NcHCO3 given acidemia on labs. Will order 1L, avoid additional LR which contains potassium Home olmesartan/spironolactone on hold ?not best choice given kenneth potassium sparing BUN/Cr improved 26/1.49 Ca 10.7 Will repeat labs this afternoon (2) KELLY (acute kidney injury): Plan: Creatinine of 1.85, baseline is near 1.3 Likely due to a combination of dehydration, ongoing losartan use, daily meloxicam use Denies taking other [id number] NSAIDs along with meloxicam and denies recent alcohol use Continue IV hydration overnight, hold olmesartan, spironolactone, meloxicam Follow renal ultrasound ordered in the ED (3) Dyspnea: Plan: Patient notes mild shortness of breath normally at night No recent chest discomfort or other respiratory symptoms Likely due to her known asthma she has mild expiratory wheezing on exam Chest x-ray is negative for acute findings Will give an albuterol neb and continue as needed Mag 1.4-- IV replacement ordered. ?2nd to PPI use/CKD (4) DMII (diabetes mellitus, type 2): Plan: Monitor BG ACHS, goal is [id number] Hold metformin Start CF of 15 CR 15 ACHS Adjust regimen as needed Plan The patient was discussed with Dr. Monk at the time of admission Admission and Anticipated Discharge Date Admission Date: July 01, 2024 Subjective Eval this morning, resting in bed. Feels fine. Some occassional SOB has resolved, ?from low mag. K still elevated and meds ordered and repeat labs for this afternoon. She reports on olmesartan/spironolactone for BP management. No excessive potassium in diet but wanting to go home and ok w/ repeat labs outpatient. Discussed if K normalized/labs improved can dc off spironolactone and have repeat labs this weekend. Discussed dangers of elevated potassium/arrhythmia. She is hopeful for dc. Results & Data Results & Data Vital Signs (Past 12 Hours) Vital Signs Temp Pulse Pulse Resp BP Pulse Ox O2 Del Method 07/02/24 03:13 36.7 C 55 L 16 98/64 L 94 Room Air 07/01/24 23:13 36.3 C L 57 L 18 105/69 95 Room Air 07/01/24 22:32 68 07/01/24 21:18 67 07/01/24 20:48 36.7 C 65 18 98 Room Air Laboratory Results 07/02/24 07/01/24 07/01/24 Range/Units 05:49 22:08 21:39 WBC 5.92 (4.8-10.8) K/ul RBC 3.72 L (4.20-5.40) M/uL Hgb 11.2 L (12.0-16.0) g/dl Hct 35.2 L (37.0-47.0) % MCV 94.6 (80.0-100.0) fL MCH 30.1 (25.0-34.0) pg MCHC 31.8 L (32.0-36.0) g/dL RDW Std Deviation 51.6 H (36.4-46.3) fL RDW Coeff of Kiel 14.7 H (11.5-14.5) % Plt Count 219 (130-400) K/uL MPV 10.5 (9.4-12.4) fL Immature Gran % (Auto) 0.3 % Neut % (Auto) 52.9 % Lymph % (Auto) 29.4 % [place] % (Auto) 8.3 % Eos % (Auto) 7.6 % Baso % (Auto) 1.5 % Neut # (Auto) 3.13 (1.40-6.50) K/uL Lymph # (Auto) 1.74 (1.20-3.40) K/uL [place] # (Auto) 0.49 (0.11-0.59) K/uL Eos # (Auto) 0.45 (0.00-0.50) K/uL Baso # (Auto) 0.09 (0.00-0.20) K/uL Immature Gran # (Auto) 0.02 (0.01-0.20) K/uL Sodium 142 (136-145) mmol/L Potassium 5.8 H (3.5-5.1) mmol/L Chloride 117 H (98-107) mmol/L Carbon Dioxide 20 L (21-32) mmol/L Anion Gap 10.7 (3-11) BUN 26 H (6-23) mg/dl Creatinine 1.49 H D (0.6-1.2) mg/dl Est Cr Clr Drug Dosing 42.6 ml/min Est GFR ( Amer) 43.5 ml/min Est GFR (Non-Af Amer) 37.5 ml/min BUN/Creatinine Ratio 17.4 (10-20) Glucose 86 (70-99(Fasting)) mg/dl POC Glucose 111 H 51 L* (70-99) mg/dl Calcium 10.7 H (8.6-10.3) mg/dl Ionized Calcium (1.12-1.32) mmol/L Phosphorus (2.5-4.9) mg/dl Magnesium 1.8 (1.7-2.4) mg/dl Total Bilirubin (0.2-1.0) mg/dl AST (13-39) U/L ALT (7-52) U/L Alkaline Phosphatase (34-104) U/L Troponin I High Sens (0-14) pg/ml Total Protein (6.0-8.3) gm/dl Albumin (3.4-5.0) gm/dl Globulin (2.5-4.0) gm/dl Albumin/Globulin Ratio (0.9-2) TSH (0.300-4.500) uIu/ml Urine Color Urine Appearance (Clear) Urine pH (4.5-7.5) Ur Specific [place] (1.000-1.030) Urine Protein (Negative) Urine Glucose (UA) (Negative) Urine Ketones (Negative) Urine Blood (Negative) Urine Nitrite (Negative) Urine Bilirubin (Negative) Urine Urobilinogen (Negative) Ur Leukocyte Esterase (Negative) Urine WBC (Auto) (0-5) /hpf Urine RBC (Auto) (0-2) /hpf U Hyaline Cast (Auto) (0-2) /lpf U Epithel Cells (Auto) (0-2) /hpf Urine Bacteria (Auto) (None Seen) 07/01/24 07/01/24 07/01/24 Range/Units 21:17 20:19 19:13 WBC (4.8-10.8) K/ul RBC (4.20-5.40) M/uL Hgb (12.0-16.0) g/dl Hct (37.0-47.0) % MCV (80.0-100.0) fL MCH (25.0-34.0) pg MCHC (32.0-36.0) g/dL RDW Std Deviation (36.4-46.3) fL RDW Coeff of Kiel (11.5-14.5) % Plt Count (130-400) K/uL MPV (9.4-12.4) fL Immature Gran % (Auto) % Neut % (Auto) % Lymph % (Auto) % [place] % (Auto) % Eos % (Auto) % Baso % (Auto) % Neut # (Auto) (1.40-6.50) K/uL Lymph # (Auto) (1.20-3.40) K/uL [place] # (Auto) (0.11-0.59) K/uL Eos # (Auto) (0.00-0.50) K/uL Baso # (Auto) (0.00-0.20) K/uL Immature Gran # (Auto) (0.01-0.20) K/uL Sodium (136-145) mmol/L Potassium 5.0 (3.5-5.1) mmol/L Chloride (98-107) mmol/L Carbon Dioxide (21-32) mmol/L Anion Gap (3-11) BUN (6-23) mg/dl Creatinine (0.6-1.2) mg/dl Est Cr Clr Drug Dosing ml/min Est GFR ( Amer) ml/min Est GFR (Non-Af Amer) ml/min BUN/Creatinine Ratio (10-20) Glucose (70-99(Fasting)) mg/dl POC Glucose 241 H (70-99) mg/dl Calcium (8.6-10.3) mg/dl Ionized Calcium 1.47 H (1.12-1.32) mmol/L Phosphorus (2.5-4.9) mg/dl Magnesium (1.7-2.4) mg/dl Total Bilirubin (0.2-1.0) mg/dl AST (13-39) U/L ALT (7-52) U/L Alkaline Phosphatase (34-104) U/L Troponin I High Sens (0-14) pg/ml Total Protein (6.0-8.3) gm/dl Albumin (3.4-5.0) gm/dl Globulin (2.5-4.0) gm/dl Albumin/Globulin Ratio (0.9-2) TSH (0.300-4.500) uIu/ml Urine Color Urine Appearance (Clear) Urine pH (4.5-7.5) Ur Specific [place] (1.000-1.030) Urine Protein (Negative) Urine Glucose (UA) (Negative) Urine Ketones (Negative) Urine Blood (Negative) Urine Nitrite (Negative) Urine Bilirubin (Negative) Urine Urobilinogen (Negative) Ur Leukocyte Esterase (Negative) Urine WBC (Auto) (0-5) /hpf Urine RBC (Auto) (0-2) /hpf U Hyaline Cast (Auto) (0-2) /lpf U Epithel Cells (Auto) (0-2) /hpf Urine Bacteria (Auto) (None Seen) 07/01/24 07/01/24 Range/Units 18:54 17:26 WBC 5.77 (4.8-10.8) K/ul RBC 3.80 L (4.20-5.40) M/uL Hgb 11.3 L (12.0-16.0) g/dl Hct 36.3 L (37.0-47.0) % MCV 95.5 (80.0-100.0) fL MCH 29.7 (25.0-34.0) pg MCHC 31.1 L (32.0-36.0) g/dL RDW Std Deviation 52.8 H (36.4-46.3) fL RDW Coeff of Kiel 14.9 H (11.5-14.5) % Plt Count 241 (130-400) K/uL MPV 11.0 (9.4-12.4) fL Immature Gran % (Auto) 0.2 % Neut % (Auto) 50.5 % Lymph % (Auto) 31.5 % [place] % (Auto) 7.5 % Eos % (Auto) 8.7 % Baso % (Auto) 1.6 % Neut # (Auto) 2.92 (1.40-6.50) K/uL Lymph # (Auto) 1.82 (1.20-3.40) K/uL [place] # (Auto) 0.43 (0.11-0.59) K/uL Eos # (Auto) 0.50 (0.00-0.50) K/uL Baso # (Auto) 0.09 (0.00-0.20) K/uL Immature Gran # (Auto) 0.01 (0.01-0.20) K/uL Sodium 140 (136-145) mmol/L Potassium 6.2 H* (3.5-5.1) mmol/L Chloride 115 H (98-107) mmol/L Carbon Dioxide 19 L (21-32) mmol/L Anion Gap 6 (3-11) BUN 36 H (6-23) mg/dl Creatinine 1.85 H D (0.6-1.2) mg/dl Est Cr Clr Drug Dosing 34.0 ml/min Est GFR ( Amer) 33.5 ml/min Est GFR (Non-Af Amer) 28.9 ml/min BUN/Creatinine Ratio 19.5 (10-20) Glucose 84 (70-99(Fasting)) mg/dl POC Glucose (70-99) mg/dl Calcium 11.2 H (8.6-10.3) mg/dl Ionized Calcium (1.12-1.32) mmol/L Phosphorus 3.2 (2.5-4.9) mg/dl Magnesium 1.4 L (1.7-2.4) mg/dl Total Bilirubin 0.4 (0.2-1.0) mg/dl AST 26 (13-39) U/L ALT 41 (7-52) U/L Alkaline Phosphatase 81 (34-104) U/L Troponin I High Sens < 2.3 (0-14) pg/ml Total Protein 7.5 (6.0-8.3) gm/dl Albumin 4.8 (3.4-5.0) gm/dl Globulin 2.7 (2.5-4.0) gm/dl Albumin/Globulin Ratio 1.8 (0.9-2) TSH 1.088 (0.300-4.500) uIu/ml Urine Color Dark Yellow Urine Appearance Clear (Clear) Urine pH 7.5 (4.5-7.5) Ur Specific [place] 1.014 (1.000-1.030) Urine Protein Negative (Negative) Urine Glucose (UA) Negative (Negative) Urine Ketones Negative (Negative) Urine Blood Negative (Negative) Urine Nitrite Negative (Negative) Urine Bilirubin Negative (Negative) Urine Urobilinogen Negative (Negative) Ur Leukocyte Esterase 2+ H (Negative) Urine WBC (Auto) 0-5 (0-5) /hpf Urine RBC (Auto) 0-2 (0-2) /hpf U Hyaline Cast (Auto) 0-2 (0-2) /lpf U Epithel Cells (Auto) 0-2 (0-2) /hpf Urine Bacteria (Auto) None Seen (None Seen) Diagnostic Findings Chest X-Ray 07/01/24 17:51 XR chest 1V portable CLINICAL HISTORY: Dyspnea. COMPARISON STUDY: Chest radiograph December 20, 2020. Chest CT August 23, 2021. FINDINGS: Lung volumes are normal. Lungs are clear. There is no pneumothorax or pleural effusion. Mild cardiomegaly is unchanged. Mediastinal contours are normal. There is no evidence for pulmonary edema. IMPRESSION: No acute cardiopulmonary findings. ACT 112: Negative or not required by law. Electronically signed by: Noe Stokes M.D. 07/01/2024 6:27 PM Renal Ultrasound 07/01/24 19:11 Exam(s): US RENAL EXAM: US Retroperitoneal Limited, Renal CLINICAL HISTORY: Reason for exam: kelly. TECHNIQUE: Real-time limited ultrasound of the retroperitoneum with image documentation. COMPARISON: No relevant prior studies available. FINDINGS: Right kidney: Right kidney measures 12.2 x 5.6 x 4.6 cm. There is a 1. 9 x 1.5 x 2 cm midpole septated cyst no hydronephrosis. Prominence of the fatty hilum. No stones. Left kidney: Left kidney measures 10.9 x 5.3 x 3.9 cm. No hydronephrosis. There are number of punctate 1-2 mm calcification. The may represent non-obstructing left renal calculi. IMPRESSION: No acute findings in the retroperitoneum. Electronically signed by: Cr Burgos MD 07/02/24 03:16 AM PG Care Time/CCT Total # of Minutes Spent Total Time Spent with Patient: Total time spent is greater than 50% in coordination of care (as documented) at patient's floor/unit and/or counseling patient: Coding Diagnoses Hyperkalemia E87.5 KELLY (acute kidney injury) N17.9 Dyspnea R06.00 DMII (diabetes mellitus, type 2) E11.9
[2024-07-02 07:45] VITALS: RESP 18
[2024-07-02] MEDS ORDERED: SODIUM CHLORIDE 0.9% 1,000 ML IV SCH (07:45)
[2024-07-02] MEDS: SODIUM BICARBONATE 8.4% 50 MEQ in SODIUM CHLORIDE 0.45 % 1,000 ML IV SCH (08:22)
[2024-07-02] MEDS: DEXTROSE 50% 50 ML SYRINGE IV STA (08:28)
[2024-07-02] MEDS: INSULIN HUMAN REGULAR PER UNIT 10 UNITS in SYRINGE 9.9 ML IV ONE (08:29)
[2024-07-02] MEDS: TIMOLOL MALEATE 0.5% OP SOLN 5 ML BTL OPR SCH (08:33)
[2024-07-02] MEDS: PATIROMER CALCIUM SORBITEX 8.4 GM PACK PO ONE ×2 (08:52→14:14)
--- NOTE | 2024-07-02 09:59 | Electrocardiogram Report ---
Test Reason : Blood Pressure : */* mmHG Vent. Rate : 59 BPM Atrial Rate : 59 BPM P-R Int : 164 ms QRS Dur : 86 ms QT Int : 380 ms P-R-T Axes : -1 4 23 degrees QTcB Int : 376 ms Sinus bradycardia Otherwise normal ECG When compared with ECG of 20-Dec-2020 10:25, QT has shortened Confirmed by Nam Posey ([id number]) on 07/02/2024 9:58:50 AM Referred By: Kayla Felipe Confirmed By: Nam Posey
[2024-07-02] MEDS: CALCIUM GLUCONATE 1,000 MG/60 ML BAG IV ONE (10:49)
--- NOTE | 2024-07-02 11:21 | Discharge Summary ---
Discharge Summary Date of Service July 02, 2024 Principal Dx & Hospital Course #1 = Principal Diagnosis (1) Hyperkalemia: 63yo female presented at direction of her primary care for concerns of outpatient labs with KELLY/hyperkalemia with K to 6.0 and Cr 2.2 K 6.2 and Cr 1.85 with baseline Cr ~1.3. Ca 11.2. Renal US without acute findings in retroperitoneum On admission, K 6.2, Cr 1.85 EKG w/ some peaked T wave on admission No CP but did have some SOB. CXR negative on admission Placed home olmesartan/spironolactone on HOLD ( patient reports taking these for BP management) Was given 1L NS however given 1L LR for acidosis noting contains potassium and AVOIDING further Given 10u regular insulin, amp dextrose and 1gm calcium gluconate w/ repeat K stable/improved to 5.0 however up to 5.8 on AM labs 07/02 Repeat Ca gluconate/10 regular insulin/amp dextrose as well as patiromer x 1 along with IVF x 1 L but ordered 1/2 NS + 50meq NaHCO3 for acidosis on labs. Cr improved to 1.49 and continued to hold spironolactone/olmesartan and BPs stable 110-120s systolically off of these. Home meloxicam and metformin also on hold (noting CrCl borderline on admission <30 however acceptable today to continue but A1c onl 5.7 and decision to HOLD at discharge for now) Patient wanting to go home. Discussed repeating labs this afternoon and if renal function improved, can discharge with STOPPING spironolactone at discharge and placing home celebrex/metformin on hold with close outpatient follow up and repeat labs this weekend to ensure remaining stable. Potassium was 5.5 on repeat and did discuss continued inpatient stay overnight however again adamant about leaving. Ordered additional gm IV mag and dose of patiromer prior to dc and instructed to hold medications as discussed and she will have repeat labs in next 24-48hours Of note, did also have recent rx for topamax within the last 30 days for weight loss and can lead to metabolic acidosis/abnormalities and should discuss with PCP in follow up about continuing. Did place on hold for now Message sent to her PCP regarding patient wanting to leave/continued elevated K and repeat labs for this weekend for follow up. (2) KELLY (acute kidney injury): Cr 2.2 on outpatient labs, BUN/Cr 36/1.85 on admission Renal U/S as above, neg for obstruction/acute finding Suspect multifactorial in patient w/ baseline CKD with ongoing celebrex use, spironolactone/olmesartan for BP and dehydration. Also new rx for topamax as above in past 30 days -- can cause metabolic acidosis/hyperchloremic metabolid acidosis --> consideration to reduce dose by 50% in f/u with PCP if continuing to current issue IVF/hydration provided and electrolyte abnormalities addressed with hyperkalemia/hypomagnesemia Cr improved to 1.48 on AM labs and home meds continued on hold as above Repeating labs this afternoon and if improved, decision to STOP spironolactone at discharge but could resume olmesartan in next 2-3 days for blood pressure but would KEEP METFORMIN, CELEBREX on hold Would discussed tapering her celebrex and increasing her tramadol as needed for pain control if worsening renal function on continued NSAIDs Renal dosed meds/avoided nephrotoxins Outpt BMP in next 24-48 hrs to ensure remaining stable as above (3) Dyspnea: Reports mild SOB at night but no CP/respiratory symptoms CXR negative Magnesium 1.4, IV replacement ordered and DENIES any further sx since replacement/normalized magnesium to 1.8. Telemetry w/ NSR, occ PAC Again, no CP/cardiac sx suspected Repeat mag low w/ afternoon labs and additional IV ordered prior to dc.?to PPI/CKD/Kelly (4) DMII (diabetes mellitus, type 2): A1c 5.7, on metformin 500mg daily BSG AC/HS, SSI while inpatient. Did have drop w/ inuslin for her hyperkalemia but no further w/ tx for today As above, metformin placed on HOLD as above and would monitor w/ diet F/u PCP about resumption if needed vs alternative Plan discharged home w/ repeat labs in next 24-48hours to ensure continued improvement in renal function/potassium. Topamax placed on hold and will need f/u discussions Notes For Next Care Provider STOPPING spironolactone given dehydration, ? if related to recent topamax rx for weight loss Placed topamax on hold for now Metformin also placed on hold given CrCl however could be resumed at the prior 500mg daily if remaining stable on outpatient labs. Consider titration off of celebrex/NSAIDs and increase tramadol for pain given C KD/worsened renal function Repeat renal function testing ordered for 24-48 hours after discharge and encouraged CLOSE follow up/return to ER for any palpitations/CP/SOB or any other symptoms. Medication Changes From Visit Spironolactone DISCONTINUED Holding olmesartan 24-48 hours Metformin/Meloxicam on HOLD Admission HPI Per Admitting Provider Rebecca is a 63-year-old female with a past medical history significant for stage III CKD, hypertension, hyperlipidemia, anxiety, and anxiety who presented to the [facility] ED on 07/01/2024 at the recommendation of her public address announcer after routine outpatient labs obtained earlier this week noted her to be hyperkalemic. She remained stable in the ED. Labs were significant for a creatinine of 1.85 (baseline has been near 1.3), BUN of 36, bicarb of 19, chloride of 115 with potassium of 6.2, calcium of 11.2, and UA with 2+ leukocyte Estrace but otherwise unremarkable. Chest x-ray was read as negative for acute findings. Prior to admission the patient was Normal saline at 125 mL/h. Patient was seen in bed in no acute distress at time of exam with bedside. She confirms the above history. Has otherwise been in her normal state of health. Denies recent fever, chills, chest pain, shortness of breath, abdominal pain, nausea/vomiting, dysuria, hematuria, melena, lower extremity swelling, recent trauma. She is a full code and would want her to make medical decisions for her if she cannot bring himself. Please refer to Dr. Monk's attestation for any changes to treatment plan Admission Exam Per Admitting Provider Physical Exam: General: In no acute distress, stated age, well-nourished, good hygiene HEENT: Normocephalic, atraumatic, no scleral icterus, pupils around round, symmetrical, and reactive to light, dry mucus membranes, trachea midline, no thyromegaly Chest/Pulm: No respiratory distress, symmetrical chest expansion, scattered expiratory wheezing throughout Cardiac: RRR, no murmurs noted Abdomen: Negative for ascites and bruising, normoactive bowel sounds, soft, non- tender to palpation throughout Musculoskeletal: Symmetrical and without signs of acute trauma, upper and lower extremities with full ROM, no atrophy, spasticity, or flaccidity Extremities: Radial, dorsalis pedis, and posterior tibial pulses are intact and symmetrical, no edema noted in the BL LE's Skin: Warm, dry, no rashes , lesions, or scars noted Neuro: Alert and oriented to person, place, month, year, and president, no focal defects, no tremors noted Psych: No acute distress, calm and cooperative during the exam Discharge Exam General: 63yo female, WN/WD sitting up in bed, NAD, wanting to go home HEENT: head atraumatic, normocephalic, mm slightly dry (prior to IVF, improved following), trachea midline Resp: even/unlabored, no w/c/r, on room air CV: RRR, no significant mrg, no pitting edema/calf tenderness GI: +BS< soft/NT : no villa, no CVA tenderness MSK/Neuro: nonfocal, answering questions appropriately, not confused Psych: AOx3, cooperative with exam Updated Medication List Medication Instructions Recorded Confirmed Type fluticasone propionate 50 1 sprays intranasal 01/10/20 07/01/24 History mcg/actuation nasal spray,suspension (Flonase Allergy Relief) vitamin B complex 1 tab PO QAM 01/10/20 07/01/24 History epinephrine 0.3 mg/0.3 mL 0.3 mg (0.3 mL) IM ONCE PRN 01/13/20 07/01/24 Rx injection, auto-injector (EpiPen allergic reaction #1 ea 2-Delroy) acetaminophen-caffeine 500 mg-65 2 tab PO QA 06/06/20 07/01/24 History mg tablet (Excedrin Tension Headache) cholecalciferol (vitamin D3) 100 100 mcg PO QAM 06/06/20 07/01/24 History mcg (4,000 unit) capsule diphenhydramine 25 2 tab PO 06/06/20 07/01/24 History mg-acetaminophen 500 mg tablet (Tylenol PM Extra Strength) loratadine 10 mg capsule (Claritin 10 mg PO QA 12/14/20 07/01/24 History Liqui-Gel) valacyclovir 500 mg tablet 500 mg PO BID PRN HSV #6 tabs 11/05/21 07/01/24 Rx melatonin 10 mg capsule 10 mg PO 01/28/22 07/01/24 History timolol 0.5 % eye drops 1 drp OPR QAM 10/01/23 07/01/24 History lidocaine 5 % topical patch 1 patch topical DAILY PRN pain #15 11/11/23 07/01/24 Rx ea metformin 500 mg tablet,extended 500 mg PO QAM 11/21/23 07/01/24 History release 24 hr buspirone 10 mg tablet 10 mg PO TID #270 tabs 01/21/24 07/01/24 Rx atorvastatin 20 mg tablet 20 mg PO QPM #90 tabs 02/11/24 07/01/24 Rx olmesartan 40 mg tablet 40 mg PO QAM #90 tabs 02/11/24 07/01/24 Rx pantoprazole 40 mg tablet,delayed 40 mg PO BID #180 tabs 02/11/24 07/01/24 Rx release spironolactone 50 mg tablet 50 mg PO QAM #90 tabs 02/11/24 07/01/24 Rx tramadol 50 mg tablet 100 mg (2 x 50 mg) PO BID PRN pain 06/03/24 07/01/24 Rx #120 tabs diltiazem HCl 300 mg 300 mg PO QPM #90 caps 06/04/24 07/01/24 Rx capsule,extended release 24 hr gabapentin 300 mg capsule 300 mg PO DAILY PRN pain #90 caps 06/04/24 07/01/24 Rx meloxicam 7.5 mg tablet 7.5 mg PO BID #180 tabs 06/04/24 07/01/24 Rx topiramate 25 mg tablet 25 mg PO HS #90 tabs 06/04/24 07/01/24 Rx lorazepam 0.5 mg tablet 0.25 mg (1/2 x 0.5 mg) PO HS PRN 06/29/24 07/01/24 Rx anxiety #15 tabs citalopram 40 mg tablet 40 mg PO QPM 07/01/24 07/01/24 History moxifloxacin 0.5 % eye drops 1 drp ophthalmic (eye) UD 07/01/24 07/01/24 History prednisolone acetate 1 % eye 1 drp ophthalmic (eye) UD 07/01/24 07/01/24 History drops,suspension Hospital Stay Data Consultations 07/01/24 19:33 ED Decision to Admit Stat Diagnostic Imagining Performed Chest X-Ray 07/01/24 17:51 XR chest 1V portable CLINICAL HISTORY: Dyspnea. COMPARISON STUDY: Chest radiograph December 20, 2020. Chest CT August 23, 2021. FINDINGS: Lung volumes are normal. Lungs are clear. There is no pneumothorax or pleural effusion. Mild cardiomegaly is unchanged. Mediastinal contours are normal. There is no evidence for pulmonary edema. IMPRESSION: No acute cardiopulmonary findings. ACT 112: Negative or not required by law. Electronically signed by: Noe Stokes M.D. 07/01/2024 6:27 PM Renal Ultrasound 07/01/24 19:11 Exam(s): US RENAL EXAM: US Retroperitoneal Limited, Renal CLINICAL HISTORY: Reason for exam: kelly. TECHNIQUE: Real-time limited ultrasound of the retroperitoneum with image documentation. COMPARISON: No relevant prior studies available. FINDINGS: Right kidney: Right kidney measures 12.2 x 5.6 x 4.6 cm. There is a 1. 9 x 1.5 x 2 cm midpole septated cyst no hydronephrosis. Prominence of the fatty hilum. No stones. Left kidney: Left kidney measures 10.9 x 5.3 x 3.9 cm. No hydronephrosis. There are number of punctate 1-2 mm calcification. The may represent non-obstructing left renal calculi. IMPRESSION: No acute findings in the retroperitoneum. Electronically signed by: Cr Burgos MD 07/02/24 03:16 AM Pending Results Patient Have Any Pending Studies at Discharge: No Discharge Instructions Given to Patient (Per Discharging Provider) You have been hospitalized at direction of primary care based on outpatient labs with elevated potassium as well as kidney function which is likely from a combination of dehydration but also medication effects from your s pironolactone/olmesartan. Spironolactone is a diuretic and has been placed on HOLD at discharge and likely should be STOPPED buttermaker. Your olemsartan has also been placed on HOLD until repeat labs outpatient show resolution in elevation in potassium which was still 5.5 prior to discharge and we did give additional medication to help bring this down. Kidney/renal ultrasound did not show any obstruction and your urine did not appear to be infected. Please AVOID foods with potassium like bananas, strawberries, citrus fruits, etc in the meantime and we have repeat labs for you to have drawn over the weekend to ensure these levels are staying stable. Please stay well hydrated at discharge to prevent worsening kidney damage. We would like you to hold your celebrex for now and discuss with primary care prior to resuming. Please do not take any additional NSAIDS (ibuprofen/aleve/motrin) while on your celebrex and talk to your primary care in follow up about continued management of your arthritis. The same goes for your metformin. Your kidney function today is at a place where this can be continued but given borderline on admission would recommend waiting until kidney function fully normalizes off diuretic therapy prior to resuming. You should also talk with your family doctor about your topiramate (topamax) as added last month for weight loss as this can cause electrolyte abnormalities as well and dose may need adjusted in follow up. Please follow up with primary care in the next 7-10 days from discharge. Please return to the ER with any chest tightness, shortness of breath, palpitations, abdominal pain/nausea or for any other symptoms concerning for you. It has been a pleasure being a part of the medical team providing for you while you have been in the hospital. Take care! Total Time Total Time Spent Total Time Spent (In Minutes): 45 Supervising Physician Co-Signing Physician Notes The patient was not seen by me. The chart was reviewed. Case discussed with HAYDEN Gambino. Agree with assessment and plan. Coding Level of Care Code 28182 INP/OBS DISCH >30 MIN Diagnoses Hyperkalemia E87.5 KELLY (acute kidney injury) N17.9 Dyspnea R06.00 DMII (diabetes mellitus, type 2) E11.9
[2024-07-02 12:02] VITALS: BP 111/76; TEMP 98.8; O2SAT 96
[2024-07-02 13:20] LABS: BUN Creatinine Ratio 17.6 (10-20); Calcium 11.6 mg/dl (8.6-10.3); Creatinine Clr Calc Pharmacy 44.7 ml/min; Est GFR (African American) 46.1 ml/min; Est GFR (Non-African American) 39.8 ml/min; Magnesium 1.5 mg/dl (1.7-2.4); Potassium 5.5 mmol/L (3.5-5.1)
[2024-07-02] MEDS: MAGNESIUM SULFATE / D5W 1 GM/100 ML BAG IV SCH (14:14)
[2024-07-02 14:36] VITALS: PULSE 55
== END 2024-07-02 15:59 | disposition home or self-care (01) | DRG 641 ==
LOC: ED 16:49 → SUATTDRO 19:21 → 2W 19:21